=== PATIENT | female | born 1955 | race African-American/Black ===

== ENCOUNTER 2022-09-08 21:18 | Emergency (ER) | payer BC, SELFPAY ==
--- OUTSIDE RECORDS SUMMARY | 2022-09-08 21:22 | XMS REPORT | Continuity of Care Document ---
:1955 Author Organization [facility] t Address [address] [place] [address] Care Team Providers Name Role Phone ROHIT ANN Attending Clinician Unavailable MICHAEL MONTALVO Attending Clinician Unavailable TEENA ESCOBAR Attending Clinician Unavailable Payers Payer Name Policy Type Policy Number Effective Date Expiration Date S [facility] [id number] 2019 PPO 00:00:00 [facility] [id number] 2016 [facility] 00:00:00 Problems This patient has no known problems. Allergies, Adverse Reactions, Alerts Allergy Allergy Status Severity Reaction(s) Onset Inactive Treating Comm ents Source Name Type Date Date Clinician CODEINE DRUG Active Med N/V [facility] 12-25 ity of 00:00: [address] Medications This patient has no known medications. Procedures This patient has no known procedures. Encounters Start End Encounter Admission Attending Care Care Encounter Source Date/Time Date/Time Type Type Clinicians Facility Department ID 2021-04-14 2021-04-14 Outpatient AILIN ANN [id number] 09:30:00 09:30:00 ROHIT parsons 2020-08-29 2020-08-29 Outpatient R SELVIN [facility] [id number] [facility] 14:00:00 14:00:00 MICHAEL itartem [facility] 2020-08-18 2020-08-18 Outpatient R LUZ [facility] [id number] [facility] 10:20:00 10:20:00 TEENA itartem [facility] 2020-08-08 2020-08-08 Out[facility] [id number] [facility] 17:00:00 17:00:00 [facility] 2020-03-22 2020-03-22 Outpatient [facility] [id number] [facility] 09:10:00 09:10:00 [facility] Results This patient has no known results.
[2022-09-08] MEDS ORDERED: PROMETHAZINE INJ 25 MG/ML AMP ONE (21:56)
[2022-09-08] MEDS ORDERED: FAMOTIDINE 20 MG/2 ML VIAL IV ONE (21:56)
[2022-09-08] MEDS ORDERED: NA CHLORIDE 0.9% 1,000 ML ONE (21:57)
[2022-09-08 22:15] LABS: Absolute Lymphocytes (CBC) 0.8 K/uL (0.7-4.9); Hematocrit 35.1 % (36.0-45.0); Lymphocytes % 4.3 % (15.3-44.8); MCV 80.5 fL (80-100); MPV 8.6 fL (7.6-11.3); RBC Red Blood Cell Count 4.36 M/uL (3.86-4.86)
[2022-09-08] MEDS ORDERED: FENTANYL CITR 100 MCG/2 ML ONE (22:29)
[2022-09-08 22:40] LABS: Albumin 3.5 g/dL (3.4-5.0); Bilirubin Total 0.2 mg/dL (0.2-1.0); Potassium 3.4 mmol/L (3.5-5.1); Protein, Total 8.8 g/dL (6.4-8.2); Thyroid Stimulating Hormone 0.371 uIU/mL (0.360-3.740); Troponin High Sensitivity 14.6 pg/mL (<58.9)
--- NOTE | 2022-09-09 00:33 | ER ---
Nurse's Notes [facility] Name: Marianna Chand Age: 67 yrs Sex: Female : 1955 Arrival Date: 09/08/2022 Time: 21:23 Bed 8 Private MD: Diagnosis: Diverticulosis of large intestine without perforation or abscess without bleeding;Biliary colic, abdominal pain Presentation: 09/08 21:31 Chief complaint: Patient states: "I have been throwing up all day, and I have been tw5 having some chest pressure. The pressure started at 5:30 PM, then it went away but then started to come back so that is when I decided to come up here.". Coronavirus screen: Vaccine status: Patient reports receiving the 2nd dose of the covid vaccine. RedT. Ebola Screen: Patient negative for fever greater than or equal to 101.5 degrees Fahrenheit, and additional compatible Ebola Virus Disease symptoms Patient denies exposure to infectious person. Patient denies travel to an Ebola-affected area in the 21 days before illness onset. Initial Sepsis Screen: Does the patient meet any 2 criteria? No. Patient's initial sepsis screen is negative. Does the patient have a suspected source of infection? No. Patient's initial sepsis screen is negative. Risk Assessment: Do you want to hurt yourself or someone else? Patient reports no desire to harm self or others. Onset of symptoms was September 07, 2022 at 17:30. 21:31 Method Of Arrival: Ambulatory tw5 21:31 Acuity: CARA 2 tw5 Triage Assessment: 21:33 General: Appears uncomfortable, Behavior is calm, cooperative, appropriate for age. tw5 Pain: Complains of pain in chest Pain currently is 7 out of 10 on a pain scale. Historical: - Allergies: 21:33 Ibuprofen; tw5 - Home Meds: 21:33 losartan-hydrochlorothiazide 100-25 mg oral tab 1 tab once daily [Active]; tw5 - PMHx: 21:33 Hypertensive disorder; tw5 - PSHx: 21:33 None; tw5 - Immunization history:: Flu vaccine is up to date. - Social history:: Smoking status: Patient denies any tobacco usage or history of. Screenin/04 00:34 Abuse screen: Denies threats or abuse. Denies injuries from another. Nutritional as6 screening: No deficits noted. Tuberculosis screening: No symptoms or risk factors identified. Fall Risk None identified. Assessment: 09/08 22:00 General: Appears in no apparent distress. Behavior is calm, cooperative. Pain: as6 Complains of pain in left upper quadrant and right upper quadrant and chest. Neuro: Level of Consciousness is awake, alert, obeys commands, Oriented to person, place, time, situation. Cardiovascular: Reports chest pain, palpitations. Respiratory: Respiratory effort is even, unlabored. GI: Abdomen is distended. 22:00 GI: Reports nausea. as6 09/09 00:16 Reassessment: Patient and/or family updated on plan of care and expected duration. Pain ll3 level reassessed. Patient is alert, oriented x 3, equal unlabored respirations, skin warm/dry/pink. States pain is 4/10 Patient states feeling better. Patient states symptoms have improved. Vital Signs: 09/08 21:31 BP 198 / 91; Pulse 101; Resp 18; Temp 98.6; Pulse Ox 100% on R/A; Weight 78.02 kg; tw5 Height 5 ft. 1 in. (154.94 cm); Pain 7/10; 22:04 BP 188 / 89; Pulse 98; Resp 29 S; Pulse Ox 100% on R/A; as6 22:44 BP 164 / 62; Pulse 93; Resp 16; Pulse Ox 100% on R/A; ll3 12/04 00:16 BP 147 / 69; Pulse 79; Resp 18; Pulse Ox 98% on R/A; Pain 4/10; ll3 09/08 21:31 Body Mass Index 32.50 (78.02 kg, 154.94 cm) tw5 ED Course: 09/08 21:23 Patient arrived in ED. ja2 21:24 Eun Boyer FNP-C is PHCP. snw 21:24 Juan Arthur DO is Attending Physician. snw 21:33 Triage completed. tw5 21:33 Arm band placed on Patient placed in an exam room. tw5 21:53 Eleno Gotti, SIDNEY is Primary Nurse. as6 22:10 Inserted saline lock: 20 gauge in left antecubital area, using aseptic technique. Blood zm collected. 22:11 CBC with Diff Sent. zm 22:11 CMP Sent. zm 22:11 Lipase Sent. zm 22:12 TSH Sent. zm 22:12 TS Sent. zm 23:47 CT Abd/Pelvis - IV Contrast Only In Process Unspecified. EDMS 09/09 00:34 Placed in gown. Bed in low position. Call light in reach. Side rails up X2. as6 00:34 No provider procedures requiring assistance completed. as6 00:59 IV discontinued, intact, bleeding controlled, No redness/swelling at site. Pressure ll3 dressing applied. Administered Medications: 09/08 22:20 Drug: Pepcid (famotidine) 20 mg Route: IVP; Site: left antecubital; ll3 09/09 00:16 Follow up: Response: No adverse reaction ll3 09/08 22:20 Drug: NS 0.9% 1000 ml Route: IV; Rate: 125 ml/hr; Site: left antecubital; ll3 22:20 Drug: Phenergan (promethazine) 25 mg Route: IM; Site: right gluteus; ll3 09/09 00:16 Follow up: Response: No adverse reaction; Marked relief of symptoms ll3 09/08 22:39 Drug: fentaNYL (PF) 50 mcg Route: IVP; Site: left antecubital; ll3 09/09 00:16 Follow up: Response: No adverse reaction; Marked relief of symptoms ll3 00:53 Drug: Augmentin (Amoxicillin-Clavulanate) 875 mg Route: PO; ll3 Medication: 00:34 VIS not applicable for this client. as6 Outcome: 00:32 Discharge ordered by . snjennifer 00:34 Condition: stable as6 00:59 Discharged to home ambulatory, with significant other. ll3 00:59 Condition: stable 00:59 Discharge instructions given to patient, significant other, Instructed on discharge instructions, follow up and referral plans. medication usage, Demonstrated understanding of instructions, follow-up care, medications, Prescriptions given X 3. 01:00 Patient left the ED. ll3 Signatures: Dispatcher [employer] EDMS Eun Boyer FNP-C ASSISTANT FIELD HOCKEY COACH-Csnw Julieth Ndiaye Tiffany tw5 Eleno Gotti RN RN as6 Phil Macario RN RN ll3 Pamela Lindsey Corrections: (The following items were deleted from the chart) 09/08 21:34 21:33 Allergies: Codeine; tw5 tw5
--- NOTE | 2022-09-09 00:33 | EDPHYS ---
Physician Documentation [facility] Name: Marianna Chand Age: 67 yrs Sex: Female : 1955 Arrival Date: 09/08/2022 Time: 21:23 Bed 8 Private MD: ED Physician Juan Arthur HPI: 09/08 21:52 This 67 yrs old Black Female presents to ER via Ambulatory with complaints of Chest snw Pressure, Vomiting, Abdominal Pain. 21:52 The patient presents with abdominal pain in the epigastric area, in the upper abdomen, snw abdominal distention in the epigastric area, in the upper abdomen. Onset: The symptoms/episode began/occurred suddenly, this morning. The symptoms do not radiate. Associated signs and symptoms: Pertinent positives: nausea and vomiting. The symptoms are described as constant, steady. Severity of pain: At its worst the pain was moderate. The patient has not experienced similar symptoms in the past. The patient has not recently seen a physician. Historical: - Allergies: 21:33 Ibuprofen; tw5 - Home Meds: 21:33 losartan-hydrochlorothiazide 100-25 mg oral tab 1 tab once daily [Active]; tw - PMHx: 21:33 Hypertensive disorder; - PSHx: 21:33 None; tw - Immunization history:: Flu vaccine is up to date. - Social history:: Smoking status: Patient denies any tobacco usage or history of. ROS: 21:51 Constitutional: Negative for fever, chills, and weight loss, Eyes: Negative for injury, snw pain, redness, and discharge, ENT: Negative for injury, pain, and discharge, Neck: Negative for injury, pain, and swelling. 21:51 Back: Negative for injury and pain, : Negative for injury, bleeding, discharge, and swelling, MS/Extremity: Negative for injury and deformity, Skin: Negative for injury, rash, and discoloration, Neuro: Negative for headache, weakness, numbness, tingling, and seizure, Psych: Negative for depression, anxiety, suicide ideation, homicidal ideation, and hallucinations. 21:51 Cardiovascular: Positive for chest pain. 21:51 Respiratory: Negative for cough, shortness of breath, sputum production. 21:51 Abdomen/GI: Positive for abdominal pain, nausea and vomiting, Negative for diarrhea. Exam: 21:50 Constitutional: This is a well developed, well nourished patient who is awake, alert, snw and in no acute distress. Head/Face: Normocephalic, atraumatic. Eyes: Pupils equal round and reactive to light, extra-ocular motions intact. Lids and lashes normal. Conjunctiva and sclera are non-icteric and not injected. Cornea within normal limits. Periorbital areas with no swelling, redness, or edema. ENT: Nares patent. No nasal discharge, no septal abnormalities noted. Tympanic membranes are normal and external auditory canals are clear. Oropharynx with no redness, swelling, or masses, exudates, or evidence of obstruction, uvula midline. Mucous membranes moist. Neck: Trachea midline, no thyromegaly or masses palpated, and no cervical lymphadenopathy. Supple, full range of motion without nuchal rigidity, or vertebral point tenderness. No Meningismus. Chest/axilla: Normal chest wall appearance and motion. Nontender with no deformity. No lesions are appreciated. 21:50 Respiratory: Lungs have equal breath sounds bilaterally, clear to auscultation and percussion. No rales, rhonchi or wheezes noted. No increased work of breathing, no retractions or nasal flaring. 21:50 Back: No spinal tenderness. No costovertebral tenderness. Full range of motion. MS/ Extremity: Pulses equal, no cyanosis. Neurovascular intact. Full, normal range of motion. Neuro: Awake and alert, GCS 15, oriented to person, place, time, and situation. Cranial nerves II-XII grossly intact. Motor strength 5/5 in all extremities. Sensory grossly intact. Cerebellar exam normal. Normal gait. Psych: Awake, alert, with orientation to person, place and time. Behavior, mood, and affect are within normal limits. 21:50 Cardiovascular: Rhythm: regular, with PVC, Heart sounds: murmur, systolic, Edema: is not appreciated. 21:50 Abdomen/GI: Inspection: distension, that is mild, that is moderate, Bowel sounds: normal, Palpation: mild abdominal tenderness, in the right upper quadrant and left upper quadrant. 21:50 Skin: Appearance: Color: pale. Vital Signs: 21:31 BP 198 / 91; Pulse 101; Resp 18; Temp 98.6; Pulse Ox 100% on R/A; Weight 78.02 kg; tw5 Height 5 ft. 1 in. (154.94 cm); Pain 7/10; 22:04 BP 188 / 89; Pulse 98; Resp 29 S; Pulse Ox 100% on R/A; as6 22:44 BP 164 / 62; Pulse 93; Resp 16; Pulse Ox 100% on R/A; ll3 09/09 00:16 BP 147 / 69; Pulse 79; Resp 18; Pulse Ox 98% on R/A; Pain 4/10; ll3 09/08 21:31 Body Mass Index 32.50 (78.02 kg, 154.94 cm) tw5 MDM: 09/08 21:28 Patient medically screened. snw 09/09 00:34 Data reviewed: vital signs, nurses notes. Data interpreted: Pulse oximetry: on room air snw is 98 %. Interpretation: normal. Counseling: I had a detailed discussion with the patient and/or guardian regarding: the historical points, exam findings, and any diagnostic results supporting the discharge/admit diagnosis, the presence of at least one elevated blood pressure reading (>120/80) during this emergency department visit, lab results, radiology results. Response to treatment: the patient's symptoms have mildly improved after treatment. Special discussion: Based on the patient's Hx, exam, and Dx evaluation, there is no indication for emergent surgery or inpatient Tx. It is understood by the patient/guardian that if the Sx's persist or worsen they need to return immediately for re-evaluation. Based on the history and exam findings, there is no indication for further emergent testing or inpatient evaluation. I discussed with the patient/guardian the need to see the zmt operator for further evaluation of the symptoms. CT results discussed with Ms. Chand with findings concerning for colon cancer. Pt must f/u with GI for colonoscopy/biopsy/tx. Pt voices understanding.. 09/08 21:47 Order name: TS; Complete Time: 23:27 snw 09/08 21:47 Order name: TSH; Complete Time: 22:41 snw 09/08 21:47 Order name: CBC with Diff; Complete Time: 22:17 snw 09/08 21:47 Order name: CMP; Complete Time: 22:41 snw 09/08 21:47 Order name: Lipase; Complete Time: 22:41 snw 09/08 21:47 Order name: Troponin High Sensitivity; Complete Time: 22:41 snw 09/08 21:54 Order name: CT Abd/Pelvis - IV Contrast Only snw 09/08 22:41 Order name: Blood Culture Adult (2) snw 09/08 23:29 Order name: ABO/RH no charge; Complete Time: 23:30 EDMS 09/08 21:47 Order name: IV Saline Lock; Complete Time: 22:11 snw 09/08 21:47 Order name: Labs collected and sent; Complete Time: 22:11 snw EC/03 21:54 Rate is 100 beats/min. Rhythm is regular. QRS Vida is Normal. CT interval is normal. snw QRS interval is normal. Clinical impression: NSR w/ Non-specific ST/T Changes. Administered Medications: 22:20 Drug: Pepcid (famotidine) 20 mg Route: IVP; Site: left antecubital; ll3 09/09 00:16 Follow up: Response: No adverse reaction 3 09/08 22:20 Drug: NS 0.9% 1000 ml Route: IV; Rate: 125 ml/hr; Site: left antecubital; 3 22:20 Drug: Phenergan (promethazine) 25 mg Route: IM; Site: right gluteus; ll3 09/09 00:16 Follow up: Response: No adverse reaction; Marked relief of symptoms ll3 09/08 22:39 Drug: fentaNYL (PF) 50 mcg Route: IVP; Site: left antecubital; ll3 09/09 00:16 Follow up: Response: No adverse reaction; Marked relief of symptoms ll3 00:53 Drug: Augmentin (Amoxicillin-Clavulanate) 875 mg Route: PO; ll3 Disposition: 09/08 22:39 Co-signature as Attending Physician, Juan BHAT was immediately available on-site ms3 in the Emergency Department for consultation in the care of the patient. Disposition Summary: 09/09/22 00:32 Discharge Ordered Location: Home snw Condition: Stable snw Diagnosis - Diverticulosis of large intestine without perforation or abscess without bleeding snw - Biliary colic, abdominal pain snw Followup: snw - With: Emergency Department - When: As needed - Reason: Worsening of condition Followup: snw - With: Private Physician - When: 1 - 2 days - Reason: Recheck today's complaints, Continuance of care, Re-evaluation by your physician Discharge Instructions: - Discharge Summary Sheet snw - Biliary Colic, Adult snw - High-Fiber Diet snw - Diverticulosis snw - Colon Mass, Adult snw Forms: - Medication Reconciliation Form snw - Thank You Letter snw - Antibiotic Education snw - Prescription Opioid Use snw Prescriptions: - Augmentin 875-125 mg Oral Tablet - take 1 tablet by ORAL route every 12 hours for 10 days; 20 tablet; Refills: 0, snw Product Selection Permitted - Tramadol 50 mg Oral Tablet - take 1 tablet by ORAL route every 8 hours as needed; 12 tablet; Refills: 0, snw Product Selection Permitted - promethazine 25 mg Oral Tablet - take 1 tablet by ORAL route every 6 hours As needed; 20 tablet; Refills: 0, snw Product Selection Permitted Signatures: Dispatcher [employer] EDMS Eun Boyer, MICHEL-C DOUGH MIXING MACHINE OPERATOR-Denilsonw Juan Arthur DO DO ms3 Rola Melara tw5 Phil Macario RN RN ll3 Corrections: (The following items were deleted from the chart) 21:34 21:33 Allergies: Codeine; tw5 tw5
[2022-09-09] MEDS ORDERED: AMOX/K CLAV 875 MG TAB ONE (00:36)
[2022-09-09 01:06] VITALS: TEMP 98.6
[2022-09-09 01:10] VITALS: BP 147/69; O2SAT 98
--- NOTE | 2022-09-10 11:41 | RAD REPORT ---
EXAM DESCRIPTION: CT - Abdomen Pelvis W Contrast - 09/09/2022 6:57 am CLINICAL HISTORY: The patient is 67 years old and is Female; Abdominal pain, acute, nonlocalized TECHNIQUE: Axial computed tomography images of the abdomen and pelvis with intravenous contrast. S agittal and coronal reformatted images were created and reviewed. This CT exam was performed using one or more of the following dose reduction techniques: automated exposure control, adjustment of t he mA and/or kV according to patient size, and/or use of iterative reconstruction technique. DLP: 1891 mGy*cm COMPARISON: None. FINDINGS: LUNG BASES: Bibasilar atelectasis or scarring. No focal consolidation. MEDIASTINUM: Small hiatal hernia. ABDOMEN: LIVER: Hepatic steatosis. GALLBLADDER AND BILE DUCTS: Cholelithiasis and fluid distention of the gallbladder. No pericholecys tic fluid. No ductal dilation. PANCREAS: Unremarkable. No mass. No ductal dilation. SPLEEN: Unremarkable. No splenomegaly. ADRENALS: Unremarkable. No mass. KIDNEYS AND URETERS: Multiple bilateral renal cysts measuring up to 3.8 cm on the left. No hydronephrosis. STOMACH AND BOWEL: Circumferential wall thickening of the distal descending colon with regional lum inal narrowing and prominence of the mesentery. Upstream thecal dilatation of the descending colon wi th scattered diverticula and wall thickening. PELVIS: APPENDIX: The appendix is seen and is within normal limits. BLADDER: Unremarkable. No mass. REPRODUCTIVE: Unremarkable as visualized. ABDOMEN and PELVIS: INTRAPERITONEAL SPACE: Unremarkable. No free air. No significant fluid collection. BONES/JOINTS: No acute fracture. No dislocation. SOFT TISSUES: Unremarkable. VASCULATURE: Unremarkable. No abdominal aortic aneurysm. LYMPH NODES: Unremarkable. No enlarged lymph nodes. IMPRESSION: 1. Circumferential wall thickening of the distal descending colon with regional lumina l narrowing and prominence of the mesentery. Upstream fecal dilatation of the descending colon with s cattered diverticula and wall thickening. Finding could be secondary to focal diverticulitis. Howev er, mucosal neoplastic (Apple core) lesion cannot be excluded. No perforation or abscess formation. C olonoscopy is recommended when clinically feasible. 2. Cholelithiasis and fluid distention of the gallbladder. No pericholecystic fluid. 3. Small hiatal hernia. 4. Hepatic steatosis. Electronically signed by: William Bhagat DO 09/09/2022 12:02 AM PRACTICE SPECIALIST Due to temporary technical issues with the PACS/Fluency reporting system, reports are being signed by the in house radiologists without review as a courtesy to insure prompt reporting. The interpreting radiologist is fully responsible for the content of the report.
--- NOTE | 2022-09-10 13:50 | EKG ---
Test Date: 2022-09-08 Test Time: 21:47:32 Licensed Aircraft Maintenance Engineer: MEASUREMENT RESULTS: Intervals: Rate: 100 AL: 130 QRSD: 86 QT: 374 QTc: 482 [place]: P: 56 AL: 130 QRS: 24 T: 19 INTERPRETIVE STATEMENTS: Sinus rhythm with premature atrial complexes Right atrial enlargement Borderline ECG Compared to ECG 07/27/1996 14:52:00 Atrial premature complex(es) now present Atrial abnormality now present Electronically Signed On 09-10-22 13:47:19 GRANULAR OPERATOR by Edmund Helms
== END 2022-09-09 01:00 | disposition home or self-care (01) ==
LOC: ER 21:18
DX: K57.30 Diverticulosis of large intestine without perforation or abscess without bleeding (principal); K80.50 Calculus of bile duct without cholangitis or cholecystitis without obstruction; I10 Essential (primary) hypertension; Z88.6 Allergy status to analgesic agent
CPT/HCPCS: 36415; 74177; 80053; 83690; 84443; 84484; 85025; 86850; 86900; 86901; 87040; 93005; 96372; 96374; 96375; 99284; J2550; J3010; J7030; Q9967

== ENCOUNTER 2022-09-22 15:44 | Inpatient (IN) | payer OTHER, SELFPAY ==
--- OUTSIDE RECORDS SUMMARY | 2022-09-22 15:46 | XMS REPORT | Continuity of Care Document ---
:1955 Author Organization [facility] t Address [address] [place] [address] Care Team Providers Name Role Phone ROHIT ANN Attending Clinician Unavailable MICHAEL MONTALVO Attending Clinician Unavailable TEENA ESCOBAR Attending Clinician Unavailable Payers Payer Name Policy Type Policy Number Effective Date Expiration Date S [facility] [id number] 2019 PPO 00:00:00 [facility] [id number] 2016 [facility] 00:00:00 Problems This patient has no known problems. Allergies, Adverse Reactions, Alerts Allergy Allergy Status Severity Reaction(s) Onset Inactive Treating Comm ents Source Name Type Date Date Clinician CODEINE DRUG Active Med N/V [facility] 12-25 ity of 00:00: [address] Medications This patient has no known medications. Procedures This patient has no known procedures. Encounters Start End Encounter Admission Attending Care Care Encounter Source Date/Time Date/Time Type Type Clinicians Facility Department ID 2021-04-14 2021-04-14 Outpatient AILIN ANN [id number] 09:30:00 09:30:00 ROHIT parsons 2020-08-29 2020-08-29 Outpatient R SELVIN [facility] [id number] [facility] 14:00:00 14:00:00 MICHAEL itartem [facility] 2020-08-18 2020-08-18 Outpatient R LUZ [facility] [id number] [facility] 10:20:00 10:20:00 TEENA itartem [facility] 2020-08-08 2020-08-08 Outpatient R [facility] [id number] [facility] 17:00:00 17:00:00 [facility] 2020-03-22 2020-03-22 Outpatient R [facility] [id number] [facility] 09:10:00 09:10:00 [facility] Results This patient has no known results.
[2022-09-22] MEDS ORDERED: ONDANSETRON 4 MG/2 ML VIAL ONE ×2 (16:26→19:28)
[2022-09-22] MEDS ORDERED: FAMOTIDINE 20 MG/2 ML VIAL IV ONE (16:27)
[2022-09-22] MEDS ORDERED: NA CHLORIDE 0.9% 1,000 ML ONE (16:27)
[2022-09-22 17:33] LABS: Absolute Lymphocytes (CBC) 0.8 K/uL (0.7-4.9); Hematocrit 37.1 % (36.0-45.0); Lymphocytes % 4.2 % (15.3-44.8); MCV 80.4 fL (80-100); MPV 8.5 fL (7.6-11.3); RBC Red Blood Cell Count 4.61 M/uL (3.86-4.86)
[2022-09-22] MEDS ORDERED: PROMETHAZINE INJ 25 MG/ML AMP ONE (18:04)
[2022-09-22] MEDS ORDERED: MORPHINE 2 MG/ML SYR ONE (18:05)
--- NOTE | 2022-09-22 18:18 | RAD REPORT ---
EXAM DESCRIPTION: CT - Abdomen Pelvis W Contrast - 09/22/2022 5:59 pm CLINICAL HISTORY: Abdominal pain COMPARISON: September 08, 2022 TECHNIQUE: Computed axial tomography of the abdomen pelvis was obtained. 100 cc Isovue-300 was admin istered intravenously. Oral contrast was not requested which limits evaluation of bowel and appendix All CT scans are performed using dose optimization technique as appropriate and may include automated exposure control or mA/KV adjustment according to patient size. FINDINGS: Fatty liver Spleen, pancreas, adrenals and right kidney unremarkable. 4.1 centimeter left renal cyst. Cholelithiasis. No gallbladder wall thickening. Small moderate hiatal hernia Calcified uterine fibroids. Diverticula stem from colon. 4 centimeter apparent soft tissue structure proximal sigmoid colon. Mild stranding within the adjacen t fat. IMPRESSION: 4 centimeter apparent soft tissue structure proximal sigmoid colon may represent neoplas m. Another consideration is that this is secondary to mild diverticulitis. Cholelithiasis
[2022-09-22 19:01] LABS: Albumin 3.3 g/dL (3.4-5.0); Bilirubin Total 0.3 mg/dL (0.2-1.0); Potassium 3.7 mmol/L (3.5-5.1)
[2022-09-22] MEDS ORDERED: hydroCHLOROthiazide 25 MG TAB ONE (19:22)
[2022-09-22] MEDS ORDERED: LOSARTAN POTASSIUM 50 MG TABLET ONE (19:22)
[2022-09-22] MEDS ORDERED: metroNIDAZOLE 500 MG TABLET ONE (19:22)
[2022-09-22] MEDS ORDERED: CIPROFLOXACIN HCL 500 MG TAB ONE (19:22)
--- NOTE | 2022-09-22 20:08 | ER ---
Nurse's Notes [facility] Name: Marianna Chand Age: 67 yrs Sex: Female : 1955 Arrival Date: 09/22/2022 Time: 15:47 Bed 7 Private MD: Diagnosis: Diverticulitis of intestine, part unspecified, without perforation or abscess without bleeding;Nausea with vomiting, unspecified;Elevated white blood cell count Presentation: 09/22 16:01 Chief complaint: Patient states: N/V x 1 day, took phenergan this morning w/ no relief, ph also reports upper abdominal pain. Coronavirus screen: Vaccine status: Patient reports receiving the 2nd dose of the covid vaccine. Ebola Screen: No symptoms or risks identified at this time. Initial Sepsis Screen: Does the patient meet any 2 criteria? No. Patient's initial sepsis screen is negative. Does the patient have a suspected source of infection? No. Patient's initial sepsis screen is negative. Risk Assessment: Do you want to hurt yourself or someone else? Patient reports no desire to harm self or others. Onset of symptoms was September 22, 2022. 16:01 Method Of Arrival: Ambulatory ph 16:01 Acuity: CARA 3 ph Historical: - Allergies: 16:05 Ibuprofen; ph - Home Meds: 16:05 losartan-hydrochlorothiazide 100-25 mg Oral tab 1 tab once daily [Active]; ph - PMHx: 16:05 Hypertensive disorder; ph - Immunization history:: Adult Immunizations unknown. - Social history:: Smoking status: Patient denies any tobacco usage or history of. Screenin:47 Abuse screen: Denies threats or abuse. Denies injuries from another. Nutritional db screening: No deficits noted. Tuberculosis screening: No symptoms or risk factors identified. Fall Risk No fall in past 12 months (0 pts). No secondary diagnosis (0 pts). IV access (20 points). Ambulatory Aid- Gait- Normal/Bed Rest/Wheelchair (0 pts) Mental Status- Oriented to own ability (0 pts). Total Hernandez Fall Scale indicates No Risk (0-24 pts). 19:09 [facility] ED Fall Risk Assessment (Adult) History of falling in the last 3 months, db including since admission No falls in past 3 months (0 pts) Confusion or Disorientation No (0 pts) Intoxicated or Sedated No (0 pts) Impaired Gait No (0 pts) Mobility Assist Device Used No (0 pt) Altered Elimination No (0 pt) Score/Fall Risk Level 0 - 2 = Low Risk. Assessment: 16:15 Reassessment: Patient appears in no apparent distress at this time. Patient is alert, db oriented x 3, equal unlabored respirations, skin warm/dry/pink. patient states has nausea and abdominal discomfort started today. states vomited BP medications. General: Appears in no apparent distress. comfortable, Behavior is calm, cooperative, appropriate for age. Pain: Complains of pain in abdomen. Neuro: No deficits noted. Level of Consciousness is awake, alert, obeys commands, Oriented to person, place, time, situation, Appropriate for age Speech is normal. Cardiovascular: No deficits noted. Respiratory: No deficits noted. GI: Abdomen is flat, non-distended, Pt is actively vomiting dry heaving Abd is soft. : No deficits noted. No signs and/or symptoms were reported regarding the genitourinary system. 18:15 Reassessment: Patient appears in no apparent distress at this time. No changes from kc6 previously documented assessment. Patient and/or family updated on plan of care and expected duration. Pain level reassessed. Patient is alert, oriented x 3, equal unlabored respirations, skin warm/dry/pink. 19:51 General: Appears in no apparent distress. comfortable, Behavior is calm, cooperative, aa9 appropriate for age. Pain: Denies pain. Neuro: Level of Consciousness is awake, alert, obeys commands, Oriented to person, place, time, situation. Respiratory: Airway is patent Respiratory effort is even, unlabored. Vital Signs: 16:01 Pulse 89; Resp 18; Temp 98.2; Pulse Ox 100% on R/A; Weight 80.29 kg; Height 5 ft. 1 in. ph (154.94 cm); 16:04 BP 199 / 74; ph 16:32 BP 179 / 66; Pulse 90; Resp 16; Pulse Ox 99% on R/A; db 18:15 BP 186 / 83; Pulse 95; Resp 16 S; Pulse Ox 100% ; Pain 9/10; kc6 19:51 BP 189 / 90; Pulse 94; Resp 19 S; Pulse Ox 99% ; aa9 23:17 BP 164 / 78; Pulse 98; Resp 16; Pulse Ox 98% on R/A; ll3 16:01 Body Mass Index 33.44 (80.29 kg, 154.94 cm) ph 16:04 threw up BP meds this morning ph ED Course: 15:47 Patient arrived in ED. rg4 15:49 Georgette Leigh F[facility]-C [facility] kb 15:49 Spenser Robles MD is Attending Physician. kb 16:04 Triage completed. ph 16:06 Arm band placed on Patient placed in an exam room. ph 16:11 Denise Shafer, RN is Primary Nurse. db 16:30 Inserted saline lock: 20 gauge in right antecubital area, using aseptic technique. db Blood collected. 18:01 CT Abd/Pelvis - IV Contrast Only In Process Unspecified. EDMS 19:09 Patient has correct armband on for positive identification. Bed in low position. Call db light in reach. Side rails up X2. Pulse ox on. NIBP on. 19:09 Report given to unclaimed property manager RN. db 21:20 Fer Farooq is Hospitalizing Provider. kb 21:49 Primary Nurse role handed off by Denise Shafer, RN wm 23:50 No provider procedures requiring assistance completed. IV discontinued, intact, aa9 bleeding controlled, No redness/swelling at site. Pressure dressing applied. Administered Medications: 16:30 Drug: NS 0.9% 1000 ml Route: IV; Rate: 1 bolus; Site: right antecubital; db 19:08 Follow up: Response: No adverse reaction; IV Status: Completed infusion; IV Intake: db 500ml 16:30 Drug: Pepcid (famotidine) 20 mg Route: IVP; Site: right antecubital; db 18:37 Follow up: Response: No adverse reaction db 16:30 Drug: Zofran (Ondansetron) 4 mg Route: IVP; Site: right antecubital; db 18:37 Follow up: Response: No adverse reaction db 18:14 Drug: Phenergan (promethazine) 25 mg Route: IM; Site: right deltoid; kc6 19:08 Follow up: Response: No adverse reaction db 19:08 Follow up: Response: Nausea is decreased db 18:14 Drug: morphine 2 mg Route: IVP; Infused Over: 4 mins; Site: right antecubital; kc6 19:08 Follow up: Response: No adverse reaction db 19:32 Drug: Losartan 100 mg Route: PO; aa9 23:52 Follow up: Response: No adverse reaction aa9 19:38 Drug: Hydrochlorothiazide 25 mg Route: PO; aa9 23:52 Follow up: Response: No adverse reaction aa9 19:38 Drug: Flagyl (metroNIDAZOLE) 500 mg Route: PO; aa9 23:52 Follow up: Response: No adverse reaction aa9 19:38 Drug: Cipro (ciprofloxacin) 500 mg Route: PO; aa9 23:52 Follow up: Response: No adverse reaction aa9 19:38 Drug: Zofran (Ondansetron) 4 mg Route: IVP; Site: right antecubital; aa9 23:52 Follow up: Response: No adverse reaction aa9 20:53 Not Given (Patient Refused): fentaNYL (PF) 25 mcg IVP once ll3 21:30 Drug: Ambien (zolpidem) 10 mg Route: PO; ll3 23:51 Follow up: Response: No adverse reaction; Marked relief of symptoms aa9 22:18 Drug: Reglan (metoCLOPramide) 10 mg Route: IVP; Site: right antecubital; ll3 23:51 Follow up: Response: No adverse reaction aa9 Medication: 16:32 VIS not applicable for this client. db Intake: 19:08 IV: 500ml; Total: 500ml. db Outcome: 20:08 Discharge ordered by MD. kb 21:20 Decision to Hospitalize by Provider. kb 23:50 Patient left the ED. hb 23:50 Admitted to Med/surg accompanied by tech, via stretcher, with chart, Report called to ekndrick Stockton RN 23:50 Condition: stable 23:50 Instructed on the need for admit, Demonstrated understanding of instructions. Signatures: Dispatcher [employer] EDGeorgette Ramirez, FÉLIX GARRETTP-Damaris Umanzor, RN RN Gina Jovel RN RN Kelsy Roger4 Simona Fuchs Lynsea, RN RN ll3 Karyna Jim RN RN Jo Ann Woods RN RN kc6 Denise Shafer RN RN db
--- NOTE | 2022-09-22 20:08 | EDPHYS ---
Physician Documentation [facility] Name: Marianna Chand Age: 67 yrs Sex: Female : 1955 Arrival Date: 09/22/2022 Time: 15:47 Bed 7 Private MD: ED Physician Spenser Robles HPI: 09/22 20:06 This 67 yrs old Black Female presents to ER via Ambulatory with complaints of Vomiting. kb 20:06 The patient presents to the emergency department with nausea, vomiting. Onset: The kb symptoms/episode began/occurred today. Possible causes: unknown. The symptoms are aggravated by nothing. The symptoms are alleviated by nothing. Associated signs and symptoms: Pertinent positives: abdominal pain, nausea, vomiting. Severity of symptoms: At their worst the symptoms were moderate in the emergency department the symptoms are unchanged. The patient has experienced a previous episode. The patient has been recently seen at the [facility] Department, a couple of weeks ago. Pt reports nausea and vomiting that started at noon today. States she has associated abd and chest pain similar to when she was here on 09/08. . Historical: - Allergies: 16:05 Ibuprofen; ph - Home Meds: 16:05 losartan-hydrochlorothiazide 100-25 mg Oral tab 1 tab once daily [Active]; ph - PMHx: 16:05 Hypertensive disorder; ph - Immunization history:: Adult Immunizations unknown. - Social history:: Smoking status: Patient denies any tobacco usage or history of. ROS: 20:03 Constitutional: Negative for fever, chills, and weight loss. kb 20:03 Abdomen/GI: Positive for abdominal pain, nausea and vomiting, Negative for diarrhea, constipation. 20:03 All other systems are negative. Exam: 19:51 Constitutional: This is a well developed, well nourished patient who is awake, alert, kb and in no acute distress. Head/Face: Normocephalic, atraumatic. ENT: Moist Mucous membranes Cardiovascular: Regular rate and rhythm with a normal S1 and S2. No gallops, murmurs, or rubs. No pulse deficits. Respiratory: Respirations even and unlabored. No increased work of breathing. Talking in full sentences Skin: Warm, dry with normal turgor. Normal color. MS/ Extremity: Pulses equal, no cyanosis. Neurovascular intact. Full, normal range of motion. Neuro: Awake and alert, GCS 15, oriented to person, place, time, and situation. Moves all extremities. Normal gait. Psych: Awake, alert, with orientation to person, place and time. Behavior, mood, and affect are within normal limits. 19:51 ECG was reviewed by the Attending Physician. 19:51 Abdomen/GI: Inspection: abdomen appears normal, Bowel sounds: normal, in all quadrants, Palpation: soft, in all quadrants, mild abdominal tenderness, in the left lower quadrant. Vital Signs: 16:01 Pulse 89; Resp 18; Temp 98.2; Pulse Ox 100% on R/A; Weight 80.29 kg; Height 5 ft. 1 in. ph (154.94 cm); 16:04 BP 199 / 74; ph 16:32 BP 179 / 66; Pulse 90; Resp 16; Pulse Ox 99% on R/A; db 18:15 BP 186 / 83; Pulse 95; Resp 16 S; Pulse Ox 100% ; Pain 9/10; kc6 19:51 BP 189 / 90; Pulse 94; Resp 19 S; Pulse Ox 99% ; aa9 23:17 BP 164 / 78; Pulse 98; Resp 16; Pulse Ox 98% on R/A; ll3 16:01 Body Mass Index 33.44 (80.29 kg, 154.94 cm) ph 16:04 threw up BP meds this morning ph MDM: 15:49 Patient medically screened. kb 20:03 Data reviewed: vital signs, nurses notes. Data interpreted: Pulse oximetry: on room air kb is 99 %. Interpretation: normal. Counseling: I had a detailed discussion with the patient and/or guardian regarding: the historical points, exam findings, and any diagnostic results supporting the discharge/admit diagnosis, lab results, radiology results, the need for outpatient follow up, a application architect, to return to the emergency department if symptoms worsen or persist or if there are any questions or concerns that arise at home. ED course: Discussed CT findings including possible colon cancer. Pt states she was told about that last visit and has an appt with Dr Pollard on Saturday. . 21:18 ED course: Pt began vomiting again. Will admit for intractable vomiting. . kb 09/22 15:56 Order name: CBC with Diff; Complete Time: 17:35 kb 09/22 15:56 Order name: CMP; Complete Time: 19:03 kb 09/22 15:56 Order name: Lipase; Complete Time: 19:03 kb 09/22 19:13 Order name: Troponin High Sensitivity; Complete Time: 19:35 kb 09/22 21:19 Order name: SARS RAPID; Complete Time: 22:11 kb 09/22 23:27 Order name: CREATININE WHOLE BLOOD; Complete Time: 23:35 EDMS 09/22 15:56 Order name: CT Abd/Pelvis - IV Contrast Only; Complete Time: 18:19 kb 09/22 15:56 Order name: IV Saline Lock; Complete Time: 16:45 kb 09/22 15:56 Order name: Labs collected and sent; Complete Time: 16:45 kb 09/22 16:58 Order name: Labs - recollect needed: hemolyzed; Complete Time: 18:36 eb 09/22 17:45 Order name: Labs - recollect needed: recollect the recollect green top/ inside lab eb paged; Complete Time: 18:36 09/22 19:11 Order name: EKG; Complete Time: 19:12 kb 09/22 19:11 Order name: EKG - Nurse/Tech; Complete Time: 19:45 kb EC:51 Rate is 90 beats/min. Rhythm is regular. QRS [place] is Normal. SC interval is normal at kb 134 msec. QRS interval is normal at 82 msec. QT interval is normal at 447 msec. Administered Medications: 16:30 Drug: NS 0.9% 1000 ml Route: IV; Rate: 1 bolus; Site: right antecubital; db 19:08 Follow up: Response: No adverse reaction; IV Status: Completed infusion; IV Intake: db 500ml 16:30 Drug: Pepcid (famotidine) 20 mg Route: IVP; Site: right antecubital; db 18:37 Follow up: Response: No adverse reaction db 16:30 Drug: Zofran (Ondansetron) 4 mg Route: IVP; Site: right antecubital; db 18:37 Follow up: Response: No adverse reaction db 18:14 Drug: Phenergan (promethazine) 25 mg Route: IM; Site: right deltoid; kc6 19:08 Follow up: Response: No adverse reaction db 19:08 Follow up: Response: Nausea is decreased db 18:14 Drug: morphine 2 mg Route: IVP; Infused Over: 4 mins; Site: right antecubital; kc6 19:08 Follow up: Response: No adverse reaction db 19:32 Drug: Losartan 100 mg Route: PO; aa9 23:52 Follow up: Response: No adverse reaction aa9 19:38 Drug: Hydrochlorothiazide 25 mg Route: PO; aa9 23:52 Follow up: Response: No adverse reaction aa9 19:38 Drug: Flagyl (metroNIDAZOLE) 500 mg Route: PO; aa9 23:52 Follow up: Response: No adverse reaction aa9 19:38 Drug: Cipro (ciprofloxacin) 500 mg Route: PO; aa9 23:52 Follow up: Response: No adverse reaction aa9 19:38 Drug: Zofran (Ondansetron) 4 mg Route: IVP; Site: right antecubital; aa9 23:52 Follow up: Response: No adverse reaction aa9 20:53 Not Given (Patient Refused): fentaNYL (PF) 25 mcg IVP once ll3 21:30 Drug: Ambien (zolpidem) 10 mg Route: PO; ll3 23:51 Follow up: Response: No adverse reaction; Marked relief of symptoms aa9 22:18 Drug: Reglan (metoCLOPramide) 10 mg Route: IVP; Site: right antecubital; ll3 23:51 Follow up: Response: No adverse reaction aa9 Disposition: 09/23 19:41 Co-signature as Attending Physician, Spenser Roblse MD. rn Disposition Summary: 09/22/22 21:20 Hospitalization Ordered Hospitalization Status: Observation kb Provider: Fer Farooq Location: Telemetry/MedSur (observation)(09/22/22 21:20) kb Condition: Stable(09/22/22 21:20) kb Problem: new kb Symptoms: are unchanged kb Bed/Room Type: Standard Room Assignment: 228(09/22/22 22:44) Diagnosis - Diverticulitis of intestine, part unspecified, without perforation or abscess kb without bleeding(09/22/22 21:20) - Nausea with vomiting, unspecified kb - Elevated white blood cell count(09/22/22 21:20) kb Forms: - Medication Reconciliation Form kb - SBAR form kb Signatures: Dispatcher [employer] Georgette Banerjee, ORAL AND MAXILLOFACIAL PATHOLOGIST-C ORAL AND MAXILLOFACIAL PATHOLOGIST-Ckb Cecile Wilkins, RN RN mw Spenser Robles MD MD rn Hall, Patricia RN RN Maylin Chao Lynsea, RN RN ll3 Karyna Jim, RN RN aa9 Jo Ann Keith RN RN kc6 Denise Shafer RN RN Paris Galvan, PA-C PA-C sb4 Corrections: (The following items were deleted from the chart) 09/22 21: 20:08 Home kb kb : 20:08 Stable kb kb : 20:08 Diverticulitis of intestine, part unspecified, without perforation or abscess kb without bleeding kb : 20:08 Elevated white blood cell count kb kb 22:44 21:20 kb mw
[2022-09-22] MEDS ORDERED: FENTANYL CITR 100 MCG/2 ML ONE (20:17)
--- NOTE | 2022-09-22 20:51 | P.HP ---
Certification for Inpatient Patient admitted to: Observation With expected LOS: <2 Midnights Patient will require the following post-hospital care: None Practitioner: I am a practitioner with admitting privileges, knowledge of patient current condition, hospital course, and medical plan of care. Services: Services provided to patient in accordance with Admission requirements found in Title 42 Section 412.3 of the Code of Federal Regulations <Paris Weldon - Last Filed: 09/22/22 23:03> Patient History Date of Service: 09/22/22 Reason for admission: Intractable Vomiting History of Present Illness: Patient is a 67 year old female with past medical history of hypertension who presented to the ED with complaints of nausea, vomiting, and abdominal pain. Patient was seen here 1.5 weeks ago and found to have a possible colonic mass and instructed to follow up with GI. She has an appointment with Dr. Pollard on Saturday. Labs are significant for 18.2, hgb 11.9, sodium 132. LFTs WNL. CT abdomen pelvis today showed "4 centimeter apparent soft tissue structure proximal sigmoid colon may represent neoplasm. Another consideration is that this is secondary to mild diverticulitis. Cholelithiasis." She continued to vomit in the ED despite several rounds of antiemetics. Patient is admitted for further management/observation of intractable vomiting. Home medications list reviewed: Yes - Past Medical/Surgical History Diabetic: No -: Hypertension -: Bilateral knee Psychosocial/ Personal History: Patient lives at home with her family. - Family History Mother -: Cancer Notes: Colon Cancer - Social History Smoking Status: Never smoker Alcohol use: No CD- Drugs: No Caffeine use: Yes Place of Residence: Home <Paris Weldon - Last Filed: 09/22/22 23:03> Date of Service: 09/30/22 <John Richmond - Last Filed: 09/30/22 00:29> Allergies No Known Allergies Allergy (Verified 09/22/22 23:56) Review of Systems Gastrointestinal: Nausea, Vomiting, Abdominal Pain <ShirazParis - Last Filed: 09/22/22 23:03> Physical Examination - Vital Signs Temperature: 98.2 F Blood Pressure: 189/90 Pulse: 94 Respirations: 19 Pulse Ox (%): 99 (room air) - Physical Exam General: Alert, In no apparent distress HEENT: Atraumatic, PERRLA, EOMI, Sclerae nonicteric Neck: Supple, 2+ carotid pulse no bruit, No LAD, Without JVD or thyroid abnormality Respiratory: Clear to auscultation bilaterally, Normal air movement Cardiovascular: Regular rate/rhythm, Normal S1 S2 Gastrointestinal: Normal bowel sounds, No tenderness Musculoskeletal: No tenderness Integumentary: No rashes Neurological: Normal speech, Normal strength at 5/5 x4 extr, Normal tone, Normal affect - Studies Laboratory Data (last 24 hrs) 09/22/22 17:35: Sodium 132 L, Potassium 3.7, BUN 12, Creatinine 0.99, Glucose 123 H, Total Bilirubin 0.3, AST 18, ALT 20, Alkaline Phosphatase 93, Lipase 60 L 09/22/22 17:20: WBC 18.20 H, Hgb 11.9 L, Hct 37.1, Plt Count 379 <Paris Weldon - Last Filed: 09/22/22 23:03> Assessment and Plan - Problems (Diagnosis) (1) Intractable vomiting with nausea Status: Acute (2) Hypertension Status: Chronic Qualifiers: Hypertension type: primary hypertension Qualified Code(s): I10 - Essential (primary) hypertension (3) Diverticulitis Status: Acute (4) Colonic mass Status: Acute - Plan Patient is admitted for observation/further management of intractable vomiting. Continue IV cipro/flagyl for leukocytosis, diverticulitis vs gastroenteritis. Will obtain abdominal ultrasound to further assess gallbladder. General surgery consult if needed. LFTs WNL. CT showing 4 centimeter apparent soft tissue structure proximal sigmoid colon may represent neoplasm. Has GI follow up Saturday. Clear liquid diet, advance as tolerated. Supportive measures with antiemetics, pain medications, and IV fluids. Monitor and replete electrolytes per protocol. Reconcile and continue home medications. Lovenox for VTE prophylaxis. Full code - Advance Directives Does patient have a Living Will: No Does patient have a Durable POA for Healthcare: No <Paris Weldon - Last Filed: 09/22/22 23:03>
[2022-09-22] MEDS ORDERED: ZOLPIDEM TARTRATE 5 MG TABLET ONE (21:11)
[2022-09-22 22:11] LABS: SARS-CoV-2 Antigen Rapid Res Negative (Negative)
[2022-09-22] MEDS ORDERED: METOCLOPRAMIDE 10 MG/2mL INJ ONE (22:17)
[2022-09-22] MEDS ORDERED: NA CHLORIDE 0.9% 100 ML IV ONE (22:17)
[2022-09-22] MEDS ORDERED: ONDANSETRON 4 MG/2 ML VIAL IV PRN (23:25)
[2022-09-22] MEDS ORDERED: MORPHINE 2 MG/ML SYR IV PRN (23:25)
[2022-09-23] MEDS: HYDRALAZINE HCL 20 MG/ML VIAL IV PRN (00:23)
[2022-09-23] MEDS: PANTOPRAZOLE 40 MG INJ IVP SCH ×3 (00:23→20:22)
[2022-09-23] MEDS: NA CHLORIDE 0.9% 1,000 ML IV SCH ×2 (00:23→13:02)
[2022-09-23] MEDS: METRONIDAZOLE 500mg IVPB 500 MG/100 ML BAG IV SCH ×3 (00:24→17:55)
[2022-09-23 01:48] VITALS: BMI 31.4
[2022-09-23 04:22] LABS: Absolute Lymphocytes (CBC) 0.6 K/uL (0.7-4.9); Hematocrit 34.2 % (36.0-45.0); Lymphocytes % 3.8 % (15.3-44.8); MCV 80.1 fL (80-100); MPV 9.1 fL (7.6-11.3); RBC Red Blood Cell Count 4.28 M/uL (3.86-4.86)
[2022-09-23 04:26] LABS: Magnesium 1.6 mg/dL (1.6-2.4); Phosphorus 2.3 mg/dL (2.5-4.9); Potassium 3.2 mmol/L (3.5-5.1)
[2022-09-23] MEDS ORDERED: MAGNESIUM SULFATE 1 gm IVPB 1 GM/100 ML BAG IV ONE (06:00)
--- NOTE | 2022-09-23 07:41 | RAD REPORT ---
EXAM DESCRIPTION: US - Abdomen Exam Limited - 09/23/2022 7:02 am CLINICAL HISTORY: cholelithiasis, intractable vomiting COMPARISON: Abdomen Pelvis W Contrast dated 09/22/2022 FINDINGS: Gallbladder size is normal. A 12 millimeter echogenic focus is present in the gallbladder fundus. There is limited or absent posterior acoustic shadowing. This is most likely a gallstone. Gal lbladder wall mass is not suspected. On the CT study the gallstone is visible in the adjacent wall is not thickened or edematous. No other stones or sludge identifiable. Common bile duct is 6 mm, normal range, with no common duct stone identified. There was limited assessment performed of the left kidney which shows normal size. A 4.4 centimeter t hin-walled simple cyst is identified. There is some heterogeneity of renal cortical echogenicity. Sriram lonephritis is possible though sonography is limited in this evaluation. Correlation is needed with a ny UA abnormalities or supporting clinical/ laboratory findings. IMPRESSION: Single 12 mm gallstone without other gallbladder or biliary tree findings. Partially imaged left kidney show some heterogeneity to the renal parenchymal echogenicity. A 4.4 bea timeter thin-walled simple cyst is present in the central kidney. Pyelonephritis cannot be excluded. Sonography is limited in this evaluation. Correlation is needed wi th any clinical symptoms, UA abnormalities or other supporting laboratory findings.
[2022-09-23] MEDS: METOCLOPRAMIDE 10 MG/2mL INJ IV PRN (08:01)
[2022-09-23] MEDS: LOSARTAN/HCTZ 50-12.5 PO SCH (08:23)
[2022-09-23] MEDS: ACETAMINOPHEN 500 MG TAB PO PRN (08:23)
[2022-09-23] MEDS: POTASS/SODIUM PHOSPHATE 1 PKT POWD.PACK PO SCH ×2 (08:24→09:51)
[2022-09-23] MEDS: ENOXAPARIN 40 MG/0.4 ML SQ SCH (08:24)
[2022-09-23] MEDS: KCL 20 MEQ/100 mL IVPB 20 MEQ/100 ML BAG IV SCH ×2 (08:25→09:53)
[2022-09-23] MEDS: Ciprofloxacin 200mg IV 200 MG/100 ML IV.SOLN. IV SCH ×2 (08:25→20:21)
[2022-09-23] MEDS ORDERED: METOPROLOL TAR 50 MG TAB PO ONE (11:00)
[2022-09-23] MEDS ORDERED: PROMETHAZINE INJ 25 MG/ML AMP IV ONE (14:00)
[2022-09-23] MEDS ORDERED: METOPROLOL TARTRATE 5 MG/5 ML INJ IV STA ×2 (14:24→14:38)
[2022-09-23] MEDS ORDERED: METOPROLOL TARTRATE 5 MG/5 ML INJ IV PRN ×2 (14:41→14:45)
--- NOTE | 2022-09-23 15:50 | EKG ---
Test Date: 2022-09-22 Test Time: 19:43:57 Bulk Sealer Operator: REZA MEASUREMENT RESULTS: Intervals: Rate: 90 OH: 134 QRSD: 82 QT: 366 QTc: 447 Ewing: P: 54 OH: 134 QRS: 24 T: 4 INTERPRETIVE STATEMENTS: Normal sinus rhythm Biatrial enlargement Possible Inferior infarct, age undetermined Cannot rule out Anterior infarct, age undetermined Abnormal ECG Compared to ECG 09/08/2022 21:47:32 Myocardial infarct finding now present Atrial premature complex(es) no longer present Electronically Signed On 09-23-22 15:49:11 PRIVACY COMPLIANCE MANAGER by Edmund Helms
[2022-09-23] MEDS ORDERED: cloNIDine HCL 0.1 MG TAB PO ONE (16:00)
[2022-09-23] MEDS: METOPROLOL TAR 50 MG TAB PO SCH (17:54)
[2022-09-23] MEDS: ZOLPIDEM TARTRATE 10 MG TABLET PO PRN (21:18)
[2022-09-24] MEDS: METRONIDAZOLE 500mg IVPB 500 MG/100 ML BAG IV SCH ×2 (00:10→09:00)
[2022-09-24 04:39] LABS: Magnesium 1.9 mg/dL (1.6-2.4); Phosphorus 1.8 mg/dL (2.5-4.9); Potassium 3.3 mmol/L (3.5-5.1)
[2022-09-24] MEDS: NA CHLORIDE 0.9% 1,000 ML IV SCH ×4 (04:57→19:54)
[2022-09-24] MEDS: METOPROLOL TAR 50 MG TAB PO SCH ×2 (05:52→17:04)
[2022-09-24] MEDS: ACETAMINOPHEN 500 MG TAB PO PRN (06:49)
[2022-09-24 07:54] LABS: Absolute Lymphocytes (CBC) 2.1 K/uL (0.7-4.9); MCV 79.8 fL (80-100); MPV 9.1 fL (7.6-11.3); RBC Red Blood Cell Count 3.76 M/uL (3.86-4.86)
--- NOTE | 2022-09-24 07:56 | P.PN ---
Date of Service: 09/23/22 Subjective Patient is still nauseated. Overall feeling better. She has an appointment to see gastroenterology for evaluation for colonoscopy. Patient has been seen in the emergency room on 2 different occasions and has been found to have a possible sigmoid lesion. Continue with antibiotic therapy at this time. As long as patient is tolerating her diet she should be able to go home for GI follow-up in a.m.. Physical Examination - Vital Signs Reviewed - Physical Exam General: Alert, In no apparent distress Respiratory: Clear to auscultation bilaterally Cardiovascular: Regular rate/rhythm, Normal S1 S2 Gastrointestinal: Normal bowel sounds, No tenderness Neurological: No focal deficits Assessment and Plan - Problems (Diagnosis) (1) Intractable vomiting with nausea Current Visit: Yes Status: Acute (2) Hypertension Current Visit: Yes Status: Chronic Qualifiers: Hypertension type: primary hypertension Qualified Code(s): I10 - Essential (primary) hypertension (3) Diverticulitis Current Visit: Yes Status: Acute (4) Colonic mass Current Visit: Yes Status: Acute - Plan -Continue IV cipro/flagyl for leukocytosis, diverticulitis vs gastroenteritis. -CT showing 4 centimeter apparent soft tissue structure proximal sigmoid colon may represent neoplasm. Has GI follow up Saturday. -Clear liquid diet, advance as tolerated. -Supportive measures with antiemetics, pain medications, and IV fluids. -Monitor and replete electrolytes per protocol. -Lovenox for VTE prophylaxis. -Full code
[2022-09-24] MEDS: POTASS/SODIUM PHOSPHATE 1 PKT POWD.PACK PO SCH ×3 (08:27→10:39)
[2022-09-24] MEDS: ENOXAPARIN 40 MG/0.4 ML SQ SCH (08:27)
[2022-09-24] MEDS: LOSARTAN/HCTZ 50-12.5 PO SCH (08:29)
[2022-09-24] MEDS: Ciprofloxacin 200mg IV 200 MG/100 ML IV.SOLN. IV SCH (09:00)
[2022-09-24] MEDS ORDERED: POTASSIUM CL SA 10 MEQ TAB PO ONE (09:00)
[2022-09-24] MEDS: PANTOPRAZOLE 40 MG INJ IVP SCH (09:00)
[2022-09-24] MEDS ORDERED: DICYCLOMINE HCL 10 MG CAP PO PRN (09:02)
[2022-09-24] MEDS: metroNIDAZOLE 500 MG TABLET PO SCH ×3 (09:36→19:53)
[2022-09-24] MEDS: PANTOPRAZOLE 40MG TABLET PO SCH ×2 (09:36→17:04)
[2022-09-24] MEDS: ONDANSETRON 4 MG (ODT) TAB PO PRN (10:34)
[2022-09-24] MEDS: CIPROFLOXACIN HCL 500 MG TAB PO SCH ×2 (11:34→19:54)
[2022-09-24] MEDS: METOCLOPRAMIDE 10 MG/2mL INJ IV PRN (14:03)
[2022-09-24] MEDS ORDERED: cloNIDine HCL 0.1 MG TAB PO ONE (15:14)
--- NOTE | 2022-09-24 15:23 | P.PN ---
Subjective Date of Service: 09/24/22 Chief Complaint: Intractable Vomiting No acute events overnight. She reports that her nausea and vomiting is worsening compared to yesterday. She has been passing flatus and has had a bowel movement. Review of Systems 10-point ROS is otherwise unremarkable Gastrointestinal: Nausea, Vomiting, Abdominal Pain Physical Examination - Vital Signs Temperature: 98.3 F Blood Pressure: 169/74 Pulse: 65 Respirations: 18 Pulse Ox (%): 97 - Physical Exam General: Alert, In no apparent distress, Oriented x3 HEENT: Atraumatic, Mucous membr. moist/pink, EOMI, Sclerae nonicteric Neck: JVD not distended Respiratory: Clear to auscultation bilaterally, Normal air movement Cardiovascular: No edema, Regular rate/rhythm, Normal S1 S2, No gallops, No rubs, No murmurs Gastrointestinal: Normal bowel sounds, Soft and benign, Non-distended, No tenderness, No rebound, No guarding Musculoskeletal: No clubbing Integumentary: No rashes Neurological: Normal speech, Normal affect Assessment And Plan - Plan # Intractable Nausea/Vomiting # History of Peptic Ulcer Disease # Cholelithiasis # Small-Moderate Hiatal Hernia - No evidence of bowel obstruction clinically - Consulted Gastroenterology and spoke with Dr. Ramos - recommendations appreciated - Plans for EGD in AM - Continue empiric ciprofloxacin + metronidazole for now - Continue pantoprazole - PRN ondansetron, metoclopromide, dicyclomine - Clear Liquid Diet - advance as tolerated - NPO after midnight # Hypertensive Urgency - Continue home losartan-hydrochlorothiazide - PRN hydralazine # Proximal Sigmoid Colonic Mass (4 cm) - Consulted Gastroenterology and spoke with Dr. Ramos - recommendations appreciated - Recommended continued outpatient follow-up with Dr. Pollard as previously scheduled # Left Renal Cyst (4.1 cm) - Follow-up with PCP Oskar Reeves M.D.
[2022-09-24] MEDS ORDERED: CIPROFLOXACIN HCL 250 MG TAB PO SCH (21:00)
[2022-09-25 03:57] LABS: Absolute Lymphocytes (CBC) 2.3 K/uL (0.7-4.9); Hematocrit 28.8 % (36.0-45.0); MCV 79.4 fL (80-100); RBC Red Blood Cell Count 3.63 M/uL (3.86-4.86)
[2022-09-25 04:03] LABS: Magnesium 1.7 mg/dL (1.6-2.4); Phosphorus 2.1 mg/dL (2.5-4.9); Potassium 3.7 mmol/L (3.5-5.1)
[2022-09-25] MEDS: METOPROLOL TAR 50 MG TAB PO SCH ×2 (05:16→17:38)
[2022-09-25] MEDS: PANTOPRAZOLE 40MG TABLET PO SCH ×2 (07:30→17:37)
[2022-09-25] MEDS ORDERED: MAGNESIUM SULFATE 1 gm IVPB 1 GM/100 ML BAG IV ONE (09:00)
[2022-09-25] MEDS: metroNIDAZOLE 500 MG TABLET PO SCH ×4 (09:00→21:45)
[2022-09-25] MEDS ORDERED: POTASSIUM PHOS IN 0.9 % NACL 15 MMOL/250 ML BAG IV ONE (09:00)
[2022-09-25] MEDS: CIPROFLOXACIN HCL 500 MG TAB PO SCH ×3 (09:00→21:45)
[2022-09-25] MEDS: ENOXAPARIN 40 MG/0.4 ML SQ SCH (09:00)
[2022-09-25] MEDS ORDERED: Ringers Lactate 1,000 ML IV ONE (09:05)
[2022-09-25] MEDS ORDERED: LIDOCAINE 1% MPF 5 ML VIAL ONE (09:59)
[2022-09-25] MEDS ORDERED: propofoL 200 MG/20 ML VIAL IV ONE (09:59)
[2022-09-25] MEDS: LOSARTAN/HCTZ 50-12.5 PO SCH (12:14)
--- NOTE | 2022-09-25 17:47 | P.PN ---
Subjective Date of Service: 09/25/22 Chief Complaint: Intractable Vomiting No acute events overnight. She reports that her nausea and vomiting is not improving, but seems to be post-prandial. Additional consideration is symptomatic cholelithiasis. Review of Systems 10-point ROS is otherwise unremarkable Gastrointestinal: Nausea, Vomiting, Abdominal Pain Physical Examination - Vital Signs Temperature: 97.7 F Blood Pressure: 175/79 Pulse: 72 Respirations: 16 Pulse Ox (%): 100 Assessment And Plan - Plan - Physical Exam General: Alert, In no apparent distress, Oriented x3 HEENT: Atraumatic, Mucous membr. moist/pink, EOMI, Sclerae nonicteric Neck: JVD not distended Respiratory: Clear to auscultation bilaterally, Normal air movement Cardiovascular: No edema, Regular rate/rhythm, Normal S1 S2, No gallops, No rubs, No murmurs Gastrointestinal: Normal bowel sounds, Soft and benign, Non-distended, No tenderness, No rebound, No guarding Musculoskeletal: No clubbing Integumentary: No rashes Neurological: Normal speech, Normal affect # Intractable Nausea/Vomiting # History of Peptic Ulcer Disease # Cholelithiasis # Small-Moderate Hiatal Hernia - No evidence of bowel obstruction clinically - Consulted Gastroenterology and spoke with Dr. Ramos - recommendations appreciated - Spoke with Dr. Ramos post-EGD, who believes that her symptoms may be secondary to cholelithiasis - He has consulted Dr. Lindsey - recommendations appreciated - Continue empiric ciprofloxacin + metronidazole for now - Continue pantoprazole - PRN ondansetron, metoclopromide, dicyclomine - Clear Liquid Diet - advance as tolerated - NPO after midnight # Hypertensive Urgency - Continue home losartan-hydrochlorothiazide - PRN hydralazine # Proximal Sigmoid Colonic Mass (4 cm) - Consulted Gastroenterology and spoke with Dr. Ramos - recommendations appreciated - Recommended continued outpatient follow-up with Dr. Pollard as previously scheduled # Left Renal Cyst (4.1 cm) - Follow-up with PCP Oskar Reeves M.D.
--- NOTE | 2022-09-25 18:25 | OP ---
Surgeon: Ritesh Ramos MD Procedure Performed: Esophagogastroduodenoscopy. Indication For Procedure: Intractable nausea and vomiting. Anesthesia: Monitored anesthesia care. Complexity: Average. Technique: After obtaining informed consent from the patient and explaining risks and complications , which include, but are not limited to bleeding, infection, perforation, and anesthesia complication , patient was placed in a left lateral position and sedation was given. Then the scope was advanced through the mouth and carefully guided up till the second portion of the duodenum. After the complet ion of procedure, scope and equipment were withdrawn and procedure terminated in a safe manner. Findings: Esophagus: No gross lesion seen in the upper and mid esophagus; however, in the distal es ophagus, there was evidence of retained food or pills. This was pushed down into the stomach. After wards on re-examining the distal esophagus, there was no mass or lesion seen, but there appeared to b e a mild stenosis. Initially, it was unclear if this was causing patient any symptoms. It likely is not the cause of the patient's nausea and vomiting. But given this finding, we decided to go ahead and do a balloon dilation. So through the scope balloon dilator, I dilated the distal esophagus from 12 to 13.5 and eventually 15 mm and held the pressure for 30 seconds. Post dilation did not reveal any significant improvement though, which may indicate less of a stricture problem and possibly we wo uld want to rule out achalasia. Biopsies were taken from the distal esophagus. Stomach: Mild patchy areas of erythema seen in the body and antrum with areas of moderate erythema, specifically in the midbody. Biopsies taken from multiple locations. Duodenum: The bulb and second portion appeared normal. Complications: None. Tolerance to anesthesia excellent. Estimated Blood Loss: Minimal. Postoperative Diagnoses: Questionable esophageal stenosis status post dilation versus suspicion of c ardiac achalasia and gastritis status post biopsies. Plan: Continue current management. Oral PPI. We will do an upper GI series with small bowel follow through. Given her symptoms, I did a detailed review of the patient's history and imaging. There is a suspicion of sigmoid lesion, which is around 4 cm versus diverticulitis as per Radiology, which is evidenced on 2 CAT scans. However, she does state she had a colonoscopy done by Dr. Pollard around 2 years ago and that was normal. So it is unlikely that neoplasm would have developed that fast. Sti ll I would not assume the finding in the sigmoid would be causing her persistent nausea and vomiting. I would more be concerned about a gallbladder issue. Therefore we have requested surgical evaluati on. There is no doubt patient will need a colonoscopy, but I would like to wait a couple of weeks be fore doing it unless absolutely necessary, given the suspicion of diverticulitis. This was discussed with the patient and as well as the Primary Care Team. US/MCKENNA Voice ID: [id number] Report ID: [id number]
[2022-09-25] MEDS: NA CHLORIDE 0.9% 1,000 ML IV SCH (21:25)
[2022-09-25] MEDS: ZOLPIDEM TARTRATE 10 MG TABLET PO PRN (21:45)
--- NOTE | 2022-09-25 22:40 | CON ---
Date of Consultation: 09/25/2022 Reason For Service: Cholelithiasis. History Of Present Illness: This is the case of a 67-year-old patient admitted to the hospital for r ecent nausea and bloating. She said every time she eats she starts to have abdominal pain. Seen by the route returner. Imaging shows possible colonic mass and also found cholelithiasis. She has been seen by Dr. Pollard properly and seen right now by Dr. Ramos while she is admitted to the [facility] and the reason I was called is just for cholelithiasis. I discussed the case with the person. The patient says that she does not think it is the gallbladder because the pain happened immediately after she eats. It was explained to her differential diagnosis of abdominal pain in that area that m ay include cholelithiasis. She stated after she eat even Jell-O, she had this bloating and had nause a and vomiting and she stated that for the last year she has been experiencing some dark blood in the stools. The patient has had an EGD with some findings, but not no evidence of peptic ulcer disease. The patient says in the past she has history of ulcers before 2018. At that moment in 2018, her ga stroenterologist was Dr. Pollard and patient claimed that she had a colonoscopy that was completely ne gative for any malignancy. Allergies: IBUPROFEN. Past Medical History: Hypertension. Past Surgical History: Bilateral knee surgeries. Family History: Mother with colon cancer. Social History: She does not smoke. She does not drink alcohol. Review of Systems: Stated nausea and vomiting, after eating, but then also she has states evidence of dark stools almost every week. She denies any weight loss. Physical Examination: General: The patient is awake and alert. Eyes: Pupils are equal and reactive. Anicteric. Neck: Supple. Chest: Clear. Abdomen: Soft and depressible. No Mcwilliams sign. No guarding or rebound. Rectal: Deferred. Extremities: Good capillary refill. Laboratory Data: Blood work shows WBC count of 11.5, coming down from 18 and platelets of 317. Tota l bilirubin of 0.3, alkaline phosphate 93. Abdominal ultrasound shows cholelithiasis and that was in 09/2017. The patient also had a CAT scan read by Dr. Ordonez showing a 4 cm soft tissue structure i n proximal sigmoid colon, mild stranding adjacent to that. Assessment: This is a 67-year-old patient with some issues. She claimed she has melena and has it a lmost every week. She also has a 4 cm structure in the sigmoid colon, cannot rule out diverticulitis versus neoplasm. She also has mild stranding around the area of that sigmoid area. She had diverti culum of the colon. She has uterine fibroid, small hiatal hernia, and cholelithiasis with no gallbla dder wall thickening. She also has a 4 cm renal cyst and family history of colon cancer in the mothe r. Last colonoscopy was in 2018. She is not convinced at this moment of going for a gallbladder vineet danyell. She understands it maybe causing some of the symptoms, she is more interested in bleeding, whi ch I fully understand with a history of colon cancer. Dr. Ramos is working on that and he is very capable of doing this workup for this lady. For the gallbladder, we are interested to do a HIDA sca n in the meantime. JIMMIE/MCKENNA Voice ID: [id number] Report ID: [id number]
[2022-09-26 00:24] VITALS: O2SAT 98
[2022-09-26] MEDS: NA CHLORIDE 0.9% 1,000 ML IV SCH ×3 (00:40→17:25)
[2022-09-26 03:32] LABS: Hematocrit 31.2 % (36.0-45.0); Lymphocytes % 20.2 % (15.3-44.8); MCV 79.9 fL (80-100); MPV 8.7 fL (7.6-11.3); RBC Red Blood Cell Count 3.91 M/uL (3.86-4.86)
[2022-09-26] MEDS ORDERED: MAGNESIUM SULFATE 1 gm IVPB 1 GM/100 ML BAG IV ONE (03:41)
[2022-09-26] MEDS: METOPROLOL TAR 50 MG TAB PO SCH ×2 (05:09→17:16)
--- NOTE | 2022-09-26 06:52 | RAD REPORT ---
EXAM DESCRIPTION: RAD - Upper GI W/Air Cont W/Sm Bowel - 09/25/2022 2:59 pm CLINICAL HISTORY: Achalasia, nausea and vomiting FINDINGS: The esophagus is normal caliber. A stricture is not seen. The esophagus, stomach and duodenum appear unremarkable. No gastroesophageal reflux Contrast enters the colon by approximately 1 hour. Mucosal folds of the small bowel are normal. The small bowel caliber normal . No permanent filling defects, obstructing or constricting lesions seen. Twenty fluoroscopic spot images obtained. Fluoroscopy time 53 seconds IMPRESSION: Unremarkable upper GI Unremarkable small bowel series
[2022-09-26 07:18] LABS: Specific Gravity 1.008 (1.005-1.030); Urine Bilirubin NEGATIVE (Negative); Urine Blood Negative (Negative); Urine Clarity Clear (Clear); Urine Color Light-Yellow (Yellow); Urine Glucose NEGATIVE (Negative); Urine Protein NEGATIVE (Negative); Urine Urobilinogen Normal (Normal); Urine pH 6.5 (5.0-7.0)
[2022-09-26] MEDS ORDERED: POTASSIUM PHOS IN 0.9 % NACL 15 MMOL/250 ML BAG IV ONE (08:00)
[2022-09-26] MEDS: LOSARTAN/HCTZ 50-12.5 PO SCH (08:14)
[2022-09-26] MEDS: PANTOPRAZOLE 40MG TABLET PO SCH ×2 (08:15→17:15)
[2022-09-26] MEDS: metroNIDAZOLE 500 MG TABLET PO SCH ×3 (08:15→20:34)
[2022-09-26] MEDS: CIPROFLOXACIN HCL 500 MG TAB PO SCH ×2 (08:15→20:33)
--- NOTE | 2022-09-26 13:46 | P.PN ---
Subjective Date of Service: 09/26/22 Chief Complaint: Intractable Vomiting No acute events overnight. She reports that her symptoms are unchanged. She states that she has been unable to eat due to the significant nausea/vomiting. She has had no episodes of vomiting overnight. She was seen by Dr. Lindsey - plan is for HIDA scan this afternoon. Review of Systems 10-point ROS is otherwise unremarkable Gastrointestinal: Nausea, Vomiting, Abdominal Pain Physical Examination - Vital Signs Temperature: 98.3 F Blood Pressure: 159/74 Pulse: 76 Respirations: 16 Pulse Ox (%): 97 Assessment And Plan - Plan - Physical Exam General: Alert, In no apparent distress, Oriented x3 HEENT: Atraumatic, Mucous membr. moist/pink, EOMI, Sclerae nonicteric Neck: JVD not distended Respiratory: Clear to auscultation bilaterally, Normal air movement Cardiovascular: No edema, Regular rate/rhythm, Normal S1 S2, No gallops, No rubs, No murmurs Gastrointestinal: Normal bowel sounds, Soft and benign, Non-distended, Mild generalized tenderness, No rebound, No guarding Musculoskeletal: No clubbing Integumentary: No rashes Neurological: Normal speech, Normal affect # Intractable Nausea/Vomiting # History of Peptic Ulcer Disease # Cholelithiasis # Small-Moderate Hiatal Hernia - No evidence of bowel obstruction clinically - Consulted Gastroenterology and spoke with Dr. Ramos - recommendations appreciated - Spoke with Dr. Ramos post-EGD, who believes that her symptoms may be secondary to cholelithiasis - Initial concern for possible achalasia - Upper GI/small bowel series = "unremarkable upper GI. Unremarkable small bowel series." - He has consulted Dr. Lindsey - recommendations appreciated - Plan for HIDA scan this afternoon ~14:00 - Decision regarding laparoscopic cholecystectomy is pending this exam - Continue empiric ciprofloxacin + metronidazole for now - Continue pantoprazole - PRN ondansetron, metoclopromide, dicyclomine # Hypertensive Urgency - Continue home losartan-hydrochlorothiazide - PRN hydralazine # Proximal Sigmoid Colonic Mass (4 cm) - Consulted Gastroenterology and spoke with Dr. Ramos - recommendations appreciated - Recommended continued outpatient follow-up with Dr. Pollard as previously scheduled # Left Renal Cyst (4.1 cm) - Follow-up with PCP Oskar Reeves M.D.
--- NOTE | 2022-09-26 14:03 | EKG ---
Test Date: 2022-09-23 Test Time: 14:15:11 Orthopedic Radiologic Technologist: ANAHI Rowe MEASUREMENT RESULTS: Intervals: Rate: 89 TX: 136 QRSD: 86 QT: 384 QTc: 467 [place]: P: 32 TX: 136 QRS: 30 T: 18 INTERPRETIVE STATEMENTS: Normal sinus rhythm Normal ECG Compared to ECG 09/22/2022 19:43:57 Atrial abnormality no longer present Myocardial infarct finding no longer present Electronically Signed On 09-26-22 14:00:31 BERRY PLANTER by Edmund Helms
--- NOTE | 2022-09-26 15:39 | RAD REPORT ---
EXAM DESCRIPTION: NM - Hepatobiliary System W/ Ph - 09/26/2022 3:28 pm CLINICAL HISTORY: Abdominal pain TECHNIQUE: The patient was administered 6.1 millicuries technetium Choletec intravenous and images o f the abdomen obtained for 19 minutes. Patient was given 1.5 micrograms Kinevac intravenously and suresh ges of the gallbladder obtained for 30 minutes FINDINGS: Liver demonstrates prompt radiotracer uptake. Activity is seen within the gallbladder by 10 minutes. After the administration of cck gallbladder ejection fraction equals 75% (normal values greater than 35% Uptake is seen within small bowel. Patient was asymptomatic prior to Kinevac appeared Patient complained of pain and nausea 1/10 during the administration of CCK. IMPRESSION: No evidence of acute cholecystitis Gallbladder ejection fraction equals 36% which is lower limits normal
[2022-09-26] MEDS: ONDANSETRON 4 MG (ODT) TAB PO PRN (17:15)
[2022-09-26] MEDS: HYDRALAZINE HCL 20 MG/ML VIAL IV PRN (17:19)
--- NOTE | 2022-09-26 18:47 | PN ---
Date of Progress Note: 09/26/2022 Diagnoses: Abdominal pain, nausea, vomiting, bloating, melena. Subjective: This is the case of a 67-year-old patient with multiple medical issues. Dr. Rachel archibald s been working on her, trying to find etiology of her disease, although we suspect may be multifactor ial and one of those factors may be the gallbladder, although cannot explain the inflammation that junior langley has in the sigmoid. She has family history of colon cancer, so it is very important for her to hav e this checkup again, since the last colonoscopy was done in 2018. She feels better, abdomen is kiara gn. Laboratory Data: Blood work is; WBC count of 9.9 with hemoglobin of 9.9. Plan: We are waiting for the HIDA scan to be done, although I explained to her the fact that the HID A scan may be abnormal, does not explain all her conditions, and she fully understands that. That is why she does not want to consent for gallbladder removal, until she has, once again, all the aspect of this somehow clarified. I agree. JIMMIE/MCKENNA Voice ID: [id number] Report ID: [id number]
[2022-09-26] MEDS: ZOLPIDEM TARTRATE 10 MG TABLET PO PRN (20:33)
[2022-09-27] MEDS: NA CHLORIDE 0.9% 1,000 ML IV SCH (02:39)
[2022-09-27] MEDS: METOPROLOL TAR 50 MG TAB PO SCH (05:43)
[2022-09-27 06:32] LABS: Magnesium 1.5 mg/dL (1.6-2.4); Phosphorus 2.3 mg/dL (2.5-4.9); Potassium 3.7 mmol/L (3.5-5.1)
[2022-09-27] MEDS ORDERED: POTASS/SODIUM PHOSPHATE 1 PKT POWD.PACK PO SCH (07:00)
[2022-09-27] MEDS: LOSARTAN/HCTZ 50-12.5 PO SCH (08:28)
[2022-09-27] MEDS: CIPROFLOXACIN HCL 500 MG TAB PO SCH (08:28)
[2022-09-27] MEDS: metroNIDAZOLE 500 MG TABLET PO SCH ×2 (08:28→13:58)
[2022-09-27] MEDS: PANTOPRAZOLE 40MG TABLET PO SCH (08:33)
[2022-09-27] MEDS ORDERED: Magnesium Sulfate 2gm IVPB 2 G/50 ML BAG IV ONE (09:00)
[2022-09-27] MEDS ORDERED: POTASSIUM CL SA 10 MEQ TAB PO ONE (09:00)
[2022-09-27] MEDS ORDERED: POTASSIUM PHOS IN 0.9 % NACL 15 MMOL/250 ML BAG IV ONE (10:00)
[2022-09-27] MEDS: HYDRALAZINE HCL 20 MG/ML VIAL IV PRN (12:03)
[2022-09-27 12:09] VITALS: BP 168/78; TEMP 98.2
--- NOTE | 2022-09-27 13:38 | P.DS ---
Admission Date: 09/22/22 Discharge Date: 09/27/22 Disposition: ROUTINE DISCHARGE Discharge Condition: GOOD Reason for Admission: Intractable Vomiting Consultations: 1. Gastroenterology 2. General Surgery Procedures: - 09/25/2022 - Esophagogastroduodenoscopy Hospital Course: DIAGNOSES: # Intractable Nausea/Vomiting # History of Peptic Ulcer Disease # Cholelithiasis # Small-Moderate Hiatal Hernia # Hypertensive Urgency # Proximal Sigmoid Colonic Mass (4 cm) # Left Renal Cyst (4.1 cm) HOSPITAL COURSE: Ms. Marianna Chand is a pleasant 67-year-old female with a past medical history significant for peptic ulcer disease and hypertension who was admitted to the [facility] on 09/22/2022 for intractable naus ea/vomiting. She was admitted to the Medicine service. She was treated with antiemetics, without alleviation of her symptoms. Her CT abdomen/pelvis revealed, "4 centimeter apparent soft tissue structure proximal sigmoid colon may represent neoplasm. Another consideration is that this is secondary to mild diverticulitis. Cholelithiasis." She has been aware of this colonic lesion prior to admission, and was scheduled to have a colonoscopy on 09/25/2022; however, she did not feel well enough to be discharged on that date, so she missed this appointment. Gastroenterology was consulted while she was hospitalized, and she was evaluated by Dr. Ramos. He felt that the colonic mass was unlikely to be the cause of her nausea and vomiting. While hospitalized, he performed an esophagogastroduodenoscopy, which did not reveal a clear etiology of her symptoms. He recommended that she have further evaluation for possible symptomatic cholelithiasis. General Surgery was consulted and she was evaluated by Dr. Linsdey. HIDA scan was obtained which revealed, "No evidence of acute cholecystitis. Gallbladder ejection fraction equals 36% which is lower limits normal." Dr. Lindsey recommended an elective cholecystectomy as an outpatient if she chooses to proceed. Over the course of her hospitalization, her symptoms improved significantly and she was able to tolerate a diet. She has been cleared for discharge by the Gastroenterology and General Surgery services. Dr. Ramos has recommended that she follow-up with him in clinic next week to have a colonoscopy and biopsies. She has agreed to make this appointment. On 09/27/2022, she was seen on morning rounds and deemed medically stable for discharge. She was discharged with instructions to schedule follow-up appointments with her PCP (ALISE Singletary), with Gastroenterology (Dr. Ramos), and with General Surgery (Dr. Lindsey). She was provided prescriptions for ciprofloxacin, metronidazole, ondansetron, and promethazine. She and her daugh ter (Ms. Grayson) were given the opportunity to ask questions and reported no further questions. Furthermore, all questions were answered to the best of my ability. A copy of this discharge summary will be sent to the above providers to facilitate continuity of care. Today, I personally spent 35 minutes on her case, of which greater than 50% of the time was spent in patient education, counseling, and coordination of care as described above. - Physical Exam General: Alert, In no apparent distress, Oriented x3 HEENT: Atraumatic, Mucous membr. moist/pink, EOMI, Sclerae nonicteric Neck: JVD not distended Respiratory: Clear to auscultation bilaterally, Normal air movement Cardiovascular: No edema, Regular rate/rhythm, Normal S1 S2, No gallops, No rubs, No murmurs Gastrointestinal: Normal bowel sounds, Soft and benign, Non-distended, No tenderness, No rebound, No guarding Musculoskeletal: No clubbing Integumentary: No rashes Neurological: Normal speech, Normal affect Vital Signs/Physical Exam: Temp Pulse Resp BP Pulse Ox 98.2 F 72 16 168/78 H 99 09/27/22 12:00 09/27/22 12:00 09/27/22 12:00 09/27/22 12:00 09/27/22 12:00 Laboratory Data at Discharge: WBC 9.90 K/uL (4.3-10.9) 09/26/22 03:03 Hgb 9.9 g/dL (12.0-15.0) L 09/26/22 03:03 Hct 31.2 % (36.0-45.0) L 09/26/22 03:03 Plt Count 302 K/uL (152-406) 09/26/22 03:03 Sodium 135 mmol/L (136-145) L 09/27/22 06:01 Potassium 3.7 mmol/L (3.5-5.1) 09/27/22 06:01 BUN 6 mg/dL (7-18) L 09/27/22 06:01 Creatinine 0.63 mg/dL (0.55-1.02) 09/27/22 06:01 Glucose 104 mg/dL (74-106) 09/27/22 06:01 Phosphorus 2.3 mg/dL (2.5-4.9) L 09/27/22 06:01 Magnesium 1.5 mg/dL (1.6-2.4) L 09/27/22 06:01 Total Bilirubin 0.3 mg/dL (0.2-1.0) 09/22/22 17:35 AST 18 U/L (15-37) 09/22/22 17:35 ALT 20 U/L (13-56) 09/22/22 17:35 Alkaline Phosphatase 93 U/L (45-117) 09/22/22 17:35 Lipase 60 U/L (73-393) L 09/22/22 17:35 Home Medications: Losartan/Hydrochlorothiazide [Losartan-Hctz 100-25 mg Tab] 1 tab PO DAILY 09/23/22 Ciprofloxacin HCl [Cipro] 500 mg PO BID 5 Days #10 tab 09/27/22 Ondansetron [Zofran (Odt)*] 4 mg PO Q8HP PRN 7 Days #20 tab 09/27/22 Promethazine Tab [Phenergan] 12.5 mg PO Q6HP PRN 7 Days #15 tab 09/27/22 metroNIDAZOLE [Flagyl*] 500 mg PO TID 5 Days #15 tab 09/27/22 New Medications: Promethazine Tab [Phenergan] 12.5 mg PO Q6HP PRN 7 Days #15 tab PRN Reason: Nausea / Vomiting Ondansetron [Zofran (Odt)*] 4 mg PO Q8HP PRN 7 Days #20 tab PRN Reason: Nausea / Vomiting Ciprofloxacin HCl [Cipro] 500 mg PO BID 5 Days #10 tab metroNIDAZOLE [Flagyl*] 500 mg PO TID 5 Days #15 tab Physician Discharge Instructions: 1. Please call and schedule a follow-up appointment with your PCP (ALISE Singletary) in 3-5 days - Please follow-up the cyst on your kidney 2. Please call and schedule a follow-up appointment with Gastroenterology (Dr. Ramos) in 3-5 days - You will need to call and schedule a colonoscopy next week to evaluate the mass in your colon 3. Please call and schedule a follow-up appointment with General Surgery (Dr. Lindsey) in 1-2 weeks - Please discuss the possible gallbladder removal surgery at this appointment Diet: [place] Activity: Ad nathalie Followup: Carlos A Lindsey MD [ACTIVE - CAN ADMIT] - Ritesh Ramos MD [ACTIVE - CAN ADMIT] - Miguel A Singletary FNP [Primary Care Provider] - Time spent managing pt's care (in minutes): 35
== END 2022-09-27 15:26 | disposition home or self-care (01) | DRG 445 ==
LOC: ER 15:44 → ERHOLD 20:45 → 2ND 23:03 → OBSVTOIN 09-24 17:06
PROVIDERS: ADMIT Hospitalist; ATTEND Internal Medicine
PROC: 0DB38ZX Excision of Lower Esophagus, Via Natural or Artificial Opening Endoscopic, Diagnostic (ICD-10-PCS; principal; 2022-09-25 09:15)
PROC: 0DB68ZX Excision of Stomach, Via Natural or Artificial Opening Endoscopic, Diagnostic (ICD-10-PCS; 2022-09-26)
DX: K80.20 Calculus of gallbladder without cholecystitis without obstruction (principal); C18.7 Malignant neoplasm of sigmoid colon; K57.92 Diverticulitis of intestine, part unspecified, without perforation or abscess without bleeding; I10 Essential (primary) hypertension; K44.9 Diaphragmatic hernia without obstruction or gangrene; N28.1 Cyst of kidney, acquired; K63.9 Disease of intestine, unspecified; I16.0 Hypertensive urgency; K29.70 Gastritis, unspecified, without bleeding; D72.829 Elevated white blood cell count, unspecified; Z88.8 Allergy status to other drugs, medicaments and biological substances; Z79.899 Other long term (current) drug therapy; Z20.822 Contact with and (suspected) exposure to COVID-19
CPT/HCPCS: 36415; 74177; 76705; 78227; 80048; 80053; 81003; 82565; 83690; 83735; 84100; 84132; 84484; 85025; 87811; 88305; 88312; 93005; 96361; 96372; 96374; 96375; 99285; A9537; C1726; C9113; G0378; J0360; J0744; J1650; J2001; J2270; J2405; J2550; J2704; J2765; J2805; J3010; J3475; J3480; J7030; J7120; Q0162; Q9967

== ENCOUNTER 2022-10-24 16:29 | Inpatient (IN) | payer OTHER ==
--- OUTSIDE RECORDS SUMMARY | 2022-10-24 16:32 | XMS REPORT | Continuity of Care Document ---
:1955 Author Organization [facility] t Address [address] [place] [address] Care Team Providers Name Role Phone ROHIT ANN Attending Clinician Unavailable MICHAEL MONTALVO Attending Clinician Unavailable TEENA ESCOBAR Attending Clinician Unavailable Payers Payer Name Policy Type Policy Number Effective Date Expiration Date [facility] [id number] 2019 PPO 00:00:00 [facility] [id number] 2016 [facility] 00:00:00 Problems This patient has no known problems. Allergies, Adverse Reactions, Alerts Allergy Allergy Status Severity Reaction(s) Onset Inactive Treating Comm ents Source Name Type Date Date Clinician CODEINE DRUG Active Med N/V [facility] 12-25 ity of 00:00: [address] Medications This patient has no known medications. Procedures This patient has no known procedures. Encounters Start End Encounter Admission Attending Care Care Encounter Source Date/Time Date/Time Type Type Clinicians Facility Department ID 2021-04-14 2021-04-14 Outpatient AILIN ANN [id number] 09:30:00 09:30:00 ROHIT [facility] 2020-08-29 2020-08-29 Outpatient R SELVIN [facility] [id number] [facility] 14:00:00 14:00:00 MICHAEL itartem [facility] 2020-08-18 2020-08-18 Outpatient R LUZ [facility] [id number] [facility] 10:20:00 10:20:00 TEENA itartem [facility] 2020-08-08 2020-08-08 Outpatient R [facility] [id number] [facility] 17:00:00 17:00:00 [facility] 2020-03-22 2020-03-22 Outpatient R [facility] [id number] [facility] 09:10:00 09:10:00 [facility] Results This patient has no known results.
[2022-10-24] MEDS ORDERED: PROMETHAZINE 25 MG TABLET ONE (17:40)
--- NOTE | 2022-10-24 18:28 | RAD REPORT ---
EXAM DESCRIPTION: CT - Stone Protocol - 10/24/2022 5:59 pm CLINICAL HISTORY: Abdominal pain. COMPARISON: September 2022 TECHNIQUE: Computed axial tomography of the abdomen pelvis was obtained without oral or IV contrast. Lack of IV and oral contrast limits evaluation of solid organs, appendix, bowel, and vessels. Lizama l reformatted images were obtained and reviewed. All CT scans are performed using dose optimization technique as appropriate and may include automated exposure control or mA/KV adjustment according to patient size. FINDINGS: A renal calculus is not seen. An ureteral calculus is not noted. A bladder calculus is not present. 4 centimeter left parapelvic renal cyst. No hydronephrosis The liver, spleen, pancreas and adrenals appear grossly normal There is no evidence of diverticulitis. The appendix appears normal Calcified uterine fibroids. Cholelithiasis without gallbladder wall thickening. Small umbilical hernia. Small to moderate hiatal hernia Diverticula stem from the colon. The stranding adjacent to the proximal sigmoid colon has diminished. Possible mass is again demonstrated IMPRESSION: Negative for a genitourinary calculus Cholelithiasis without evidence of cholecystitis The inflammation surrounding the proximal sigmoid colon has diminished since the prior exam. Possible mass within the proximal sigmoid colon is again demonstrated
[2022-10-24] MEDS ORDERED: NA CHLORIDE 0.9% 500 ML ONE (18:58)
[2022-10-24 18:59] LABS: Absolute Lymphocytes (CBC) 2.2 K/uL (0.7-4.9); Hematocrit 40.7 % (36.0-45.0); MCV 77.9 fL (80-100); MPV 8.4 fL (7.6-11.3); RBC Red Blood Cell Count 5.23 M/uL (3.86-4.86)
[2022-10-24 19:42] LABS: Albumin 3.5 g/dL (3.4-5.0); Bilirubin Total 0.8 mg/dL (0.2-1.0); Protein, Total 8.2 g/dL (6.4-8.2)
[2022-10-24 19:44] LABS: Potassium 2.5 mmol/L (3.5-5.1)
--- NOTE | 2022-10-24 19:58 | EDPHYS ---
Physician Documentation [facility] Name: Marianna Chand Age: 67 yrs Sex: Female : 1955 Arrival Date: 10/24/2022 Time: 16:32 Bed 18 Private MD: ED Physician Agustín Olvera HPI: 10/24 18:35 This 67 yrs old Black Female presents to ER via Wheelchair with complaints of snw Nausea/Vomiting. 18:35 The patient presents to the emergency department with nausea, vomiting. Onset: The snw symptoms/episode began/occurred 2 month(s) ago, and became persistent. The symptoms are aggravated by food . Severity of symptoms: At their worst the symptoms were moderate. The patient has experienced similar episodes in the past, multiple times. as noted. Historical: - Allergies: 17:09 Ibuprofen; iw - Home Meds: 17:09 losartan-hydrochlorothiazide 100-25 mg Oral tab 1 tab once daily [Active]; iw - PMHx: 17:09 Hypertensive disorder; iw ROS: 18:32 Constitutional: Negative for fever, chills, and weight loss, Eyes: Negative for injury, snw pain, redness, and discharge, ENT: Negative for injury, pain, and discharge, Neck: Negative for injury, pain, and swelling, Cardiovascular: Negative for chest pain, palpitations, and edema, Respiratory: Negative for shortness of breath, cough, wheezing, and pleuritic chest pain, Back: Negative for injury and pain, : Negative for injury, bleeding, discharge, and swelling, MS/Extremity: Negative for injury and deformity, Skin: Negative for injury, rash, and discoloration, Neuro: Negative for headache, weakness, numbness, tingling, and seizure, Psych: Negative for depression, anxiety, suicide ideation, homicidal ideation, and hallucinations. 18:32 Abdomen/GI: Positive for nausea and vomiting. Exam: 18:31 Constitutional: This is a well developed, well nourished patient who is awake, alert, snw and in no acute distress. Head/Face: Normocephalic, atraumatic. Eyes: Pupils equal round and reactive to light, extra-ocular motions intact. Lids and lashes normal. Conjunctiva and sclera are non-icteric and not injected. Cornea within normal limits. Periorbital areas with no swelling, redness, or edema. ENT: Nares patent. No nasal discharge, no septal abnormalities noted. Tympanic membranes are normal and external auditory canals are clear. Oropharynx with no redness, swelling, or masses, exudates, or evidence of obstruction, uvula midline. Mucous membranes moist. Neck: Trachea midline, no thyromegaly or masses palpated, and no cervical lymphadenopathy. Supple, full range of motion without nuchal rigidity, or vertebral point tenderness. No Meningismus. Chest/axilla: Normal chest wall appearance and motion. Nontender with no deformity. No lesions are appreciated. Cardiovascular: Regular rate and rhythm with a normal S1 and S2. No gallops, murmurs, or rubs. Normal PMI, no JVD. No pulse deficits. Respiratory: Lungs have equal breath sounds bilaterally, clear to auscultation and percussion. No rales, rhonchi or wheezes noted. No increased work of breathing, no retractions or nasal flaring. Back: No spinal tenderness. No costovertebral tenderness. Full range of motion. Skin: Warm, dry with normal turgor. Normal color with no rashes, no lesions, and no evidence of cellulitis. MS/ Extremity: Pulses equal, no cyanosis. Neurovascular intact. Full, normal range of motion. Neuro: Awake and alert, GCS 15, oriented to person, place, time, and situation. Cranial nerves II-XII grossly intact. Motor strength 5/5 in all extremities. Sensory grossly intact. Cerebellar exam normal. Normal gait. Psych: Awake, alert, with orientation to person, place and time. Behavior, mood, and affect are within normal limits. 18:31 Abdomen/GI: Inspection: distension, that is mild, that is moderate, Bowel sounds: active, Palpation: mild abdominal tenderness, in the right upper quadrant and left upper quadrant. Vital Signs: 17:07 BP 122 / 52; Pulse 92; Resp 16; Temp 98.4(O); Pulse Ox 100% on R/A; Weight 69.85 kg; iw Height 5 ft. 1 in. (154.94 cm); Pain 5/10; 21:00 BP 131 / 58; Pulse 81; Resp 22; Pulse Ox 10% ; vc1 22:15 BP 105 / 46; Pulse 88; Resp 17; Pulse Ox 100% ; vc1 23:30 BP 114 / 75; Pulse 87; Resp 22; Pulse Ox 98% on R/A; vc1 17:07 Body Mass Index 29.10 (69.85 kg, 154.94 cm) iw MDM: 17:13 Patient medically screened. snw 18:32 Differential diagnosis: Nonspecific abd pain, gastritis, cholecystitis, diverticulitis. snw Data reviewed: vital signs, nurses notes. I considered the following discharge prescriptions or medication management in the emergency department Medications were administered in the Emergency Department. See MAR. Historians other than the Patient: Spouse/Significant Other: . External Records Reviewed: Inpatient record: Saw Dr. Ramos 09/25/22, Dr. Lindsey 09/26/22. Pt was admitted for intractable N/V. Hida scan showed GB EF 36% low norm. Pt had colonoscopy 10/18/[address] Ramos, noted area of interest was not visualized well. Pt is to have longer prep and repeat colonoscopy 11/05/22. Pt is without s/s change at this time but feels dehydrated and would like some fluids. Pt last episode of vomiting today at 1530, said to be bile in nature.. 10/24 18:03 Order name: CBC with Diff; Complete Time: 19:13 snw 10/24 18:03 Order name: CMP; Complete Time: 19:46 snw 10/24 18:03 Order name: Lipase; Complete Time: 19:46 snw 10/24 19:59 Order name: Urine Osmolality la 10/24 19:59 Order name: Osmolality, Serum; Complete Time: 00:32 la1 10/24 19:59 Order name: Urine Potassium Random 10/24 17:32 Order name: CT Stone Protocol; Complete Time: 18:30 snw 10/24 19:59 Order name: Urine Sodium Random 10/24 19:59 Order name: Add On-Lab w 10/24 20:12 Order name: Magnesium; Complete Time: 20:41 EDMS 10/24 20:19 Order name: SARS RAPID; Complete Time: 23:20 snw 10/24 18:03 Order name: IV Saline Lock; Complete Time: 18:53 snw 10/24 18:04 Order name: Labs collected and sent; Complete Time: 18:53 snw 10/24 19:03 Order name: Labs - recollect needed: recollect green top; Complete Time: 19:17 bd Administered Medications: 17:51 Drug: Phenergan (promethazine) 25 mg Route: PO; 5 18:55 Drug: NS 0.9% 500 ml Route: IV; Rate: bolus; Site: left antecubital; 5 20:00 Follow up: IV Status: Completed infusion; IV Intake: 500ml 1 19:59 CANCELLED (Other Intervention Used): NS 0.9% 1000 ml IV at 125 ml/hr continuous la1 20:15 Drug: fentaNYL (PF) 25 mcg Route: IVP; Site: left antecubital; 5 22:00 Follow up: Response: No adverse reaction; Marked relief of symptoms; Pain is decreased vc1 20:15 Drug: Potassium Chloride 20 mEq Route: IV; Rate: calculated rate; [facility]; 22:15 Follow up: Response: No adverse reaction; IV Status: Completed infusion; IV Intake: vc1 100ml 20:15 Drug: Potassium Chloride 40 mEq Route: PO; [facility] 10/25 00:20 Follow up: Response: No adverse reaction; No change in condition 1 10/24 20:19 CANCELLED (we no have): Erythrocin (ERYTHromycin) 500 mg PO once [facility] 20:40 Drug: Ambien (zolpidem) 5 mg Route: PO; 1 10/25 00:19 Follow up: Response: No adverse reaction 1 10/24 21:33 Drug: NS 0.9% 250 ml Route: IV; Rate: calculated rate; Site: left antecubital; [facility] 10/25 00:19 Follow up: IV Status: Completed infusion; IV Intake: 500ml 1 10/24 22:11 Drug: Ambien (zolpidem) 5 mg Route: PO; vc1 23:00 Follow up: Response: No adverse reaction vc1 22:11 Drug: ProTONIX (pantoprazole) 40 mg Route: IVP; Site: left antecubital; 1 23:00 Follow up: Response: No adverse reaction; Marked relief of symptoms vc1 22:51 Drug: Potassium Chloride 20 mEq Route: IV; Rate: calculated rate; Site: left [facility] antecubital; 10/25 00:19 Follow up: IV Status: Infusion continued upon admission vc1 Disposition: 12:35 Co-signature as Attending Physician, Agustín Olvera MD I agree with the assessment and kdr plan of care. Disposition Summary: 10/24/22 19:58 Hospitalization Ordered Location: Telemetry/[facility] (Inpatient) snw Condition: Stable snw Problem: an acute exacerbation snw Symptoms: have worsened snw Bed/Room Type: Standard snw Provider: Oskar Reeves(10/24/22 19:58) snw Hospitalization Status: Observation(10/24/22 20:00) snw Room Assignment: 209(10/24/22 23:14) eb1 Diagnosis - Other disorders of electrolyte and fluid balance, not elsewhere classified snw - Nausea with vomiting, unspecified snw Forms: - Medication Reconciliation Form snw - SBAR form snw Signatures: Dispatcher [employer] EDRenuka Mccartney Kevin, MD MD kdr Eun Boyer, IS SUPPORT ANALYST-C IS SUPPORT ANALYST-Csnw Darlyn Macias, RN SIDNEY iw Norman Mathur, IS SUPPORT ANALYST-C IS SUPPORT ANALYST-Cla1 Silvestre Caldera RN RN jb4 Jaimie Abraham RN RN eb1 Julieth Conrad RN RN jh5 Charmaine Moreno, RN RN vc1 Corrections: (The following items were deleted from the chart) 10/24 19:58 19:58 Javier Robles snw snw 19:59 19:46 NS 0.9% 1000 ml IV at 125 ml/hr continuous ordered. snw la1 20:00 19:58 Inpatient Admission snw snw 20:19 19:43 Erythrocin (ERYTHromycin) 500 mg PO once ordered. snw jh5 23:14 19:58 snw eb1
--- NOTE | 2022-10-24 19:58 | ER ---
Nurse's Notes [facility] Name: Marianna Chand Age: 67 yrs Sex: Female : 1955 Arrival Date: 10/24/2022 Time: 16:32 Bed 18 Private MD: Diagnosis: Other disorders of electrolyte and fluid balance, not elsewhere classified;Nausea with vomiting, unspecified Presentation: 10/24 17:07 Chief complaint: Patient states: nausea since Saturday , had a colonoscopy , also iw vomiting ,also has stomach pains that are uncomfortable. Coronavirus screen: At this time, the client does not indicate any symptoms associated with coronavirus-19. Ebola Screen: Patient negative for fever greater than or equal to 101.5 degrees Fahrenheit, and additional compatible Ebola Virus Disease symptoms Patient denies exposure to infectious person. Patient denies travel to an Ebola-affected area in the 21 days before illness onset. No symptoms or risks identified at this time. Initial Sepsis Screen: Does the patient meet any 2 criteria? No. Patient's initial sepsis screen is negative. Does the patient have a suspected source of infection? No. Patient's initial sepsis screen is negative. Risk Assessment: Do you want to hurt yourself or someone else? Patient reports no desire to harm self or others. Onset of symptoms was October 24, 2022. 17:07 Method Of Arrival: Wheelchair iw 17:07 Acuity: CARA 3 iw Triage Assessment: 19:00 General: Appears in no apparent distress. uncomfortable, Behavior is calm, cooperative, vc1 appropriate for age. Pain: Complains of pain in abdomen Pain does not radiate. EENT: No deficits noted. Neuro: Level of Consciousness is awake, alert, obeys commands, Oriented to person, place, time, situation. Cardiovascular: No deficits noted. Respiratory: No deficits noted. GI: Reports lower abdominal pain, upper abdominal pain, nausea, vomiting. : No deficits noted. Derm: No deficits noted. Musculoskeletal: No deficits noted. Historical: - Allergies: 17:09 Ibuprofen; iw - Home Meds: 17:09 losartan-hydrochlorothiazide 100-25 mg Oral tab 1 tab once daily [Active]; iw - PMHx: 17:09 Hypertensive disorder; iw Screenin:30 [facility] ED Fall Risk Assessment (Adult) History of falling in the last 3 months, vc1 including since admission No falls in past 3 months (0 pts) Confusion or Disorientation No (0 pts) Intoxicated or Sedated No (0 pts) Impaired Gait No (0 pts) Mobility Assist Device Used No (0 pt) Altered Elimination No (0 pt). Abuse screen: Denies threats or abuse. Nutritional screening: No deficits noted. Tuberculosis screening: No symptoms or risk factors identified. Assessment: 19:00 Reassessment: See triage assessment. vc1 19:00 GI: Abdomen is round non-distended. vc1 20:00 Reassessment: Patient and/or family updated on plan of care and expected duration. Pain vc1 level reassessed. Patient states symptoms have improved. 21:00 Reassessment: Patient and/or family updated on plan of care and expected duration. Pain vc1 level reassessed. Patient states feeling better. GI: Reports no longer feels and pain or nausea. 22:00 Reassessment: Patient and/or family updated on plan of care and expected duration. Pain vc1 level reassessed. Patient states feeling better. Patient states symptoms have improved. 23:00 Reassessment: No changes from previously documented assessment. Patient and/or family vc1 updated on plan of care and expected duration. Pain level reassessed. 10/25 00:00 Reassessment: No changes from previously documented assessment. Patient and/or family vc1 updated on plan of care and expected duration. Pain level reassessed. Vital Signs: 10/24 17:07 BP 122 / 52; Pulse 92; Resp 16; Temp 98.4(O); Pulse Ox 100% on R/A; Weight 69.85 kg; iw Height 5 ft. 1 in. (154.94 cm); Pain 5/10; 21:00 BP 131 / 58; Pulse 81; Resp 22; Pulse Ox 10% ; vc1 22:15 BP 105 / 46; Pulse 88; Resp 17; Pulse Ox 100% ; vc1 23:30 BP 114 / 75; Pulse 87; Resp 22; Pulse Ox 98% on R/A; vc1 17:07 Body Mass Index 29.10 (69.85 kg, 154.94 cm) iw ED Course: 16:32 Patient arrived in ED. mr 16:50 [facility]-C [facility] snw 16:50 Agustín Olvera MD is Attending Physician. snw 17:09 Triage completed. iw 17:09 Arm band placed on. iw 18:01 CT Stone Protocol In Process Unspecified. EDMS 19:11 Julieth Conrad, SIDNEY is Primary Nurse. 5 19:12 Primary Nurse role handed off by Julieth Conrad, RN vc1 19:12 Charmaine Moreno RN is Primary Nurse. vc1 19:43 Notified ED physician of a critical lab result(s). potassium 2.5 chloride 84. 5 19:57 Javier Robles MD is Hospitalizing Provider. snw 19:58 Oskar Reeves MD is Hospitalizing Provider. w 10/25 00:10 No provider procedures requiring assistance completed. Patient admitted, IV remains in vc1 place. Administered Medications: 10/24 17:51 Drug: Phenergan (promethazine) 25 mg Route: PO; 5 18:55 Drug: NS 0.9% 500 ml Route: IV; Rate: bolus; Site: left antecubital; [facility] 20:00 Follow up: IV Status: Completed infusion; IV Intake: 500ml vc1 19:59 CANCELLED (Other Intervention Used): NS 0.9% 1000 ml IV at 125 ml/hr continuous la1 20:15 Drug: fentaNYL (PF) 25 mcg Route: IVP; Site: left antecubital; [facility] 22:00 Follow up: Response: No adverse reaction; Marked relief of symptoms; Pain is decreased vc1 20:15 Drug: Potassium Chloride 20 mEq Route: IV; Rate: calculated rate; Site: left [facility] antecubital; 22:15 Follow up: Response: No adverse reaction; IV Status: Completed infusion; IV Intake: vc1 100ml 20:15 Drug: Potassium Chloride 40 mEq Route: PO; 5 10/25 00:20 Follow up: Response: No adverse reaction; No change in condition 1 10/24 20:19 CANCELLED (we no have): Erythrocin (ERYTHromycin) 500 mg PO once 5 20:40 Drug: Ambien (zolpidem) 5 mg Route: PO; vc1 10/25 00:19 Follow up: Response: No adverse reaction [facility] 10/24 21:33 Drug: NS 0.9% 250 ml Route: IV; Rate: calculated rate; Site: left antecubital; jb4 10/25 00:19 Follow up: IV Status: Completed infusion; IV Intake: 500ml vc1 10/24 22:11 Drug: Ambien (zolpidem) 5 mg Route: PO; vc1 23:00 Follow up: Response: No adverse reaction vc1 22:11 Drug: ProTONIX (pantoprazole) 40 mg Route: IVP; Site: left antecubital; vc1 23:00 Follow up: Response: No adverse reaction; Marked relief of symptoms vc1 22:51 Drug: Potassium Chloride 20 mEq Route: IV; Rate: calculated rate; Site: left vc1 antecubital; 10/25 00:19 Follow up: IV Status: Infusion continued upon admission vc1 Medication: 00:10 VIS not applicable for this client. vc1 Intake: 10/24 20:00 IV: 500ml; Total: 500ml. vc1 22:15 IV: 100ml; Total: 600ml. vc1 10/25 00:19 IV: 500ml; Total: 1100ml. vc1 Outcome: 10/24 19:58 Decision to Hospitalize by Provider. snw 10/25 00:10 Admitted to Med/surg accompanied by tech, via wheelchair, room 209, Report called to [facility] Hermelinda Instructed on the need for admit. 00:17 Condition: improved vc1 00:18 Patient left the ED. vc1 Signatures: Dispatcher [employer] EDMS Eun Boyer FNP-C PRINT DESIGNER-Csnw Yenny Ignacio Irene, RN RN iw Bryson, James, RN RN jb4 Julieth Conrad RN RN jh5 Charmaine Moreno RN RN vc1 Norman Mathur PRINT DESIGNER-Cla1 Corrections: (The following items were deleted from the chart) 10/24 17:20 17:07 BP 122 / 52; Pulse 92bpm; Resp 16bpm; Pulse Ox 100% RA; 69.85 kg; Height 5 ft. 1 iw in.; BMI: 29.1; Pain 5/10; iw
[2022-10-24] MEDS ORDERED: POTASSIUM CL SA 10 MEQ TAB PO ONE (20:09)
[2022-10-24] MEDS ORDERED: FENTANYL CITR 100 MCG/2 ML ONE (20:09)
[2022-10-24] MEDS ORDERED: KCL 20 MEQ/100 mL IVPB 100 ML IV ONE ×2 (20:10→22:49)
[2022-10-24] MEDS ORDERED: ZOLPIDEM TARTRATE 5 MG TABLET ONE ×2 (20:39→21:58)
[2022-10-24] MEDS ORDERED: NA CHLORIDE 0.9% 250 ML ONE (21:30)
[2022-10-24] MEDS ORDERED: PANTOPRAZOLE 40 MG INJ ONE (21:58)
--- NOTE | 2022-10-24 22:00 | P.HP ---
Certification for Inpatient Patient admitted to: Inpatient With expected LOS: >2 Midnights Patient will require the following post-hospital care: None Practitioner: I am a practitioner with admitting privileges, knowledge of patient current condition, hospital course, and medical plan of care. Services: Services provided to patient in accordance with Admission requirements found in Title 42 Section 412.3 of the Code of Federal Regulations <Norman Mathur - Last Filed: 10/24/22 21:57> Patient History Date of Service: 10/24/22 Reason for admission: Hyponatremia, hypokalemia History of Present Illness: 67-year-old female with history of hypertension, recently diagnosed proximal sigmoid colonic mass, GERD presents to the emergency department for intractable nausea and vomiting. She reports that she had a colonoscopy performed on 10/18/2022, unfortunately as procedure they were unable to fully visualize the mass to evaluate, since then patient has had intermittent nausea, vomiting. She also takes losartan/hydrochlorothiazide at home, she was evaluated in the emergency department found to have hyponatremia with a sodium of 122 potassium of 2.5 chloride 84 leukocytosis with a white blood cell count of 15.6, no source of infection identified. In the emergency department patient was given 500 cc NS bolus as well as 40 of IV potassium and 40 of p.o. potassium. Will admit for further valuation and management of hyponatremia, hypokalemia, intractable nausea/vomiting. - Past Medical/Surgical History Diabetic: No -: Hypertension -: Sigmoid mass -: left knee sx Psychosocial/ Personal History: Patient lives at home with her family. - Family History Mother -: Cancer Notes: Colon Cancer - Social History Alcohol use: No CD- Drugs: No Caffeine use: No Place of Residence: Home <Norman Mathur - Last Filed: 10/24/22 21:57> Date of Service: 10/25/22 <Oskar Reeves - Last Filed: 10/25/22 18:24> Allergies NSAIDS (Non-Steroidal Anti-Inflamma Adverse Reaction (Verified 10/25/22 01:57) bleeding Home Medications: RX: Losartan/Hydrochlorothiazide [Losartan-Hctz 100-25 mg Tab] 1 tab PO DAILY 09/23/22 Promethazine Tab [Phenergan] 12.5 mg PO Q6HP PRN 7 Days #15 tab 09/27/22 RX: Ondansetron [Zofran (Odt)*] 4 mg PO Q8HP PRN 7 Days #20 tab 09/27/22 Zolpidem Tartrate [Ambien] 10 mg PO BEDTIME 10/25/22 Review of Systems 10-point ROS is otherwise unremarkable Gastrointestinal: Nausea, Vomiting <Norman Mathur - Last Filed: 10/24/22 21:57> Physical Examination - Physical Exam General: Alert, In no apparent distress, Oriented x3 HEENT: Atraumatic, PERRLA, Mucous membr. moist/pink, EOMI, Sclerae nonicteric Neck: Supple, 2+ carotid pulse no bruit, No LAD, Without JVD or thyroid abnormality Respiratory: Clear to auscultation bilaterally, Normal air movement Cardiovascular: Regular rate/rhythm, Normal S1 S2 Capillary refill: <2 Seconds Gastrointestinal: Normal bowel sounds, No tenderness Musculoskeletal: No tenderness Integumentary: No rashes Neurological: Normal speech, Normal strength at 5/5 x4 extr, Normal tone, Normal affect - Studies Laboratory Data (last 24 hrs) 10/24/22 19:14: Sodium 122 L, Potassium 2.5 L*, BUN 12, Creatinine 1.05 H, Glucose 114 H, Total Bilirubin 0.8, AST 25, ALT 18, Alkaline Phosphatase 91, Lipase 267 10/24/22 18:52: Magnesium 1.8 10/24/22 18:52: WBC 15.60 H, Hgb 13.3, Hct 40.7, Plt Count 325 <Norman Mathur - Last Filed: 10/24/22 21:57> - Studies Laboratory Data (last 24 hrs) 10/24/22 19:14: Sodium 122 L, Potassium 2.5 L*, BUN 12, Creatinine 1.05 H, Glucose 114 H, Total Bilirubin 0.8, AST 25, ALT 18, Alkaline Phosphatase 91, Lipase 267 10/24/22 18:52: Magnesium 1.8 10/24/22 18:52: WBC 15.60 H, Hgb 13.3, Hct 40.7, Plt Count 325 <Oskar Reeves - Last Filed: 10/25/22 18:24> Assessment and Plan - Plan Assessment: Severe hyponatremia, hypokalemia Intractable nausea/vomiting Hypertension Sigmoid colonic mass Plan: Severe hyponatremia, hypokalemia: Likely multifactorial given intractable nausea/vomiting, use of losartan/hydrochlorothiazide, recent colonoscopy prep. Patient given NS bolus as well as potassium replacement ED, will hold off on additional IV fluids until repeat chemistry at midnight in order to avoid overcorrection. Intractable nausea/vomiting: N.p.o. for tonight, twice daily IV Protonix. Hypertension: Hold losartan/HCTZ, likely DC HCTZ at discharge. Sigmoid colonic mass: Patient has repeat colonoscopy scheduled for 11/05/2022 as they were unable to completely visualize colonic mass during previous co lonoscopy. DVT PPX: Lovenox Code status: Full Discharge Plan: Home Plan to discharge in: 48 Hours - Advance Directives Does patient have a Living Will: No Does patient have a Durable POA for Healthcare: No - Code Status/Comfort Care Code Status Assessed: Yes (Full code) Critical Care: No Time Spent Managing Pts Care (In Minutes): 55 <Norman Mathur - Last Filed: 10/24/22 21:57> Physician Review: Patient Assessed, Agree with Above Assessment and Plan <Oskar Reeves - Last Filed: 10/25/22 18:24>
[2022-10-24 23:11] LABS: SARS-CoV-2 Antigen Rapid Res Negative (Negative)
[2022-10-24] MEDS ORDERED: ACETAMINOPHEN 500 MG TAB PO PRN (23:14)
[2022-10-24] MEDS ORDERED: ONDANSETRON 4 MG/2 ML VIAL IV PRN (23:14)
[2022-10-24] MEDS ORDERED: SODIUM CHLORIDE 0.9% 10ML INJ IV PRN (23:14)
[2022-10-25 00:35] LABS: Potassium 3.2 mmol/L (3.5-5.1)
[2022-10-25 01:03] LABS: Specific Gravity 1.007 (1.005-1.030); Urine Bilirubin NEGATIVE (Negative); Urine Blood Negative (Negative); Urine Clarity Clear (Clear); Urine Color Light-Yellow (Yellow); Urine Glucose NEGATIVE (Negative); Urine Protein NEGATIVE (Negative); Urine Urobilinogen Normal (Normal); Urine pH 7.5 (5.0-7.0)
[2022-10-25] MEDS ORDERED: NA CHLORIDE 0.9% 1,000 ML IV SCH ×2 (02:00)
[2022-10-25 02:25] VITALS: BMI 29.9
[2022-10-25 03:39] LABS: Absolute Lymphocytes (CBC) 2.2 K/uL (0.7-4.9); Hematocrit 35.3 % (36.0-45.0); Lymphocytes % 14.3 % (15.3-44.8); MCV 78.3 fL (80-100); MPV 8.7 fL (7.6-11.3); RBC Red Blood Cell Count 4.51 M/uL (3.86-4.86)
[2022-10-25 03:55] LABS: Potassium 3.1 mmol/L (3.5-5.1)
[2022-10-25] MEDS ORDERED: POTASSIUM CL SA 10 MEQ TAB PO ONE (04:30)
[2022-10-25] MEDS ORDERED: MAGNESIUM SULFATE 1 gm IVPB 1 GM/100 ML BAG IV ONE (06:29)
[2022-10-25] MEDS ORDERED: INFLUENZA VACCINE (for 6+ mo) 0.5 ML DOSE IMVAC ONE (08:00)
[2022-10-25 08:50] LABS: Potassium 3.2 mmol/L (3.5-5.1)
[2022-10-25] MEDS: ENOXAPARIN 40 MG/0.4 ML SQ SCH (09:03)
[2022-10-25] MEDS: PANTOPRAZOLE 40 MG INJ IVP SCH ×2 (09:03→20:43)
--- NOTE | 2022-10-25 09:28 | P.CNS ---
Date of Consult: 10/25/22 Reason for Consult: Hyponatremia Requesting Physician: Oskar Reeves Chief Complaint: Hyponatremia, hypokalemia History of Present Illness: 67-year-old female with history of hypertension, recently diagnosed proximal sigmoid colonic mass, GERD presents to the emergency department for intractable nausea and vomiting. She reports that she had a colonoscopy performed on 10/18/2022, unfortunately as procedure they were unable to fully visualize the mass to evaluate, since then patient has had intermittent nausea, vomiting. She also takes losartan/hydrochlorothiazide at home, she was evaluated in the emergency department found to have hyponatremia with a sodium of 122 potassium of 2.5 chloride 84 leukocytosis with a white blood cell count of 15.6, no source of infection identified. In the emergency department patient was given 500 cc NS bolus as well as 40 of IV potassium and 40 of p.o. potassium. Will admit for further valuation and management of hyponatremia, hypokalemia, intractable nausea/vomiting. 18:35 This 67 yrs old Black Female presents to ER via Wheelchair with complaints of snw Nausea/Vomiting. 18:35 The patient presents to the emergency department with nausea, vomiting. Onset: The snw symptoms/episode began/occurred 2 month(s) ago, and became persistent. The symptoms are aggravated by food . Severity of symptoms: At their worst the symptoms were moderate. The patient has experienced similar episodes in the past, multiple times. as noted. Allergies NSAIDS (Non-Steroidal Anti-Inflamma Adverse Reaction (Verified 10/25/22 01:57) bleeding Home medications list reviewed: Yes Home Medications: Losartan/Hydrochlorothiazide [Losartan-Hctz 100-25 mg Tab] 1 tab PO DAILY 09/23/22 Ondansetron [Zofran (Odt)*] 4 mg PO Q8HP PRN 7 Days #20 tab 09/27/22 Promethazine Tab [Phenergan] 12.5 mg PO Q6HP PRN 7 Days #15 tab 09/27/22 Zolpidem Tartrate [Ambien] 10 mg PO BEDTIME 10/25/22 - Past Medical/Surgical History Diabetic: No -: Hypertension -: Sigmoid mass -: Hyponatremia episode (Dr. Corrales) -: left knee sx Psychosocial/ Personal History: Patient lives at home with her family. - Family History Mother Medical History: Cancer Notes: Colon Cancer - Social History Alcohol use: No CD- Drugs: No Caffeine use: No Place of Residence: Home Review of Systems 10-point ROS is otherwise unremarkable Gastrointestinal: Nausea Neurological: Weakness Physical Examination Temp Pulse Resp BP Pulse Ox 97.8 F 80 16 104/48 L 98 10/25/22 08:00 10/25/22 08:00 10/25/22 08:00 10/25/22 08:00 10/25/22 08:00 General: In no apparent distress, Oriented x3, Cooperative HEENT: Atraumatic Neck: Supple Respiratory: Clear to auscultation bilaterally Cardiovascular: No edema, Regular rate/rhythm Gastrointestinal: Soft and benign, Non-distended Musculoskeletal: No clubbing, No contractures Integumentary: No rashes, No cyanosis Neurological: Normal speech Laboratory Data (last 24 hrs) 10/24/22 19:14: Sodium 122 L, Potassium 2.5 L*, BUN 12, Creatinine 1.05 H, Glucose 114 H, Total Bilirubin 0.8, AST 25, ALT 18, Alkaline Phosphatase 91, Lipase 267 10/24/22 18:52: Magnesium 1.8 10/24/22 18:52: WBC 15.60 H, Hgb 13.3, Hct 40.7, Plt Count 325 Imagings Data: EXAM DESCRIPTION: CT - Stone Protocol - 10/24/2022 5:59 pm CLINICAL HISTORY: Abdominal pain. COMPARISON: September 2022 TECHNIQUE: Computed axial tomography of the abdomen pelvis was obtained without oral or IV contrast. Lack of IV and oral contrast limits evaluation of solid organs, appendix, bowel, and vessels. Coronal reformatted images were obtained and reviewed. All CT scans are performed using dose optimization technique as appropriate and may include automated exposure control or mA/KV adjustment according to patient size. FINDINGS: A renal calculus is not seen. An ureteral calculus is not noted. A bladder calculus is not present. 4 centimeter left parapelvic renal cyst. No hydronephrosis The liver, spleen, pancreas and adrenals appear grossly normal There is no evidence of diverticulitis. The appendix appears normal Calcified uterine fibroids. Cholelithiasis without gallbladder wall thickening. Small umbilical hernia. Small to moderate hiatal hernia Diverticula stem from the colon. The stranding adjacent to the proximal sigmoid colon has diminished. Possible mass is again demonstrated IMPRESSION: Negative for a genitourinary calculus Cholelithiasis without evidence of cholecystitis The inflammation surrounding the proximal sigmoid colon has diminished since the prior exam. Possible mass within the proximal sigmoid colon is again demonstrated Conclusions/Impression: Hyponatremia in the setting of HCTZ and N/V/anorexia -Hold HCTZ -Sodium correction within limits at this time; advance liquid diet to maintain appropriate correction rate -BMP q4h Hypokalemia in the setting of HCTZ and N/V/anorexia -Replete as ordered -Continue to monitor HTN -Hold antihypertensives at this time Anemia in chronic illness Microcytosis -Monitor H&H -Check iron status Thank you kindly for the consultation
[2022-10-25] MEDS ORDERED: POTASSIUM 25 MEQ EFFERV TAB PO ONE (11:41)
[2022-10-25 13:04] LABS: Potassium 3.3 mmol/L (3.5-5.1)
--- NOTE | 2022-10-25 18:26 | P.PN ---
Subjective Date of Service: 10/25/22 Chief Complaint: Hyponatremia, hypokalemia No acute events overnight. She states that her nausea/vomiting have improved significantly. She states that she was scheduled to have her colonoscopy on 10/18/2022, but it was unable to be completed due to a poor bowel preparation. She reports having significant vomiting since that procedure. Review of Systems 10-point ROS is otherwise unremarkable Gastrointestinal: Nausea, Vomiting Physical Examination - Vital Signs Temperature: 97.5 F Blood Pressure: 140/66 Pulse: 78 Respirations: 16 Pulse Ox (%): 100 - Physical Exam General: Alert, In no apparent distress, Oriented x3 HEENT: Atraumatic, Mucous membr. moist/pink, EOMI, Sclerae nonicteric Neck: JVD not distended Respiratory: Clear to auscultation bilaterally, Normal air movement Cardiovascular: No edema, Regular rate/rhythm, Normal S1 S2, No gallops, No rubs, No murmurs Gastrointestinal: Soft and benign, Non-distended, No tenderness, No rebound, No guarding, Hyperactive Musculoskeletal: No clubbing Integumentary: No rashes Neurological: Normal speech, Normal affect - Studies Laboratory Data (last 24 hrs) 10/24/22 19:14: Sodium 122 L, Potassium 2.5 L*, BUN 12, Creatinine 1.05 H, Glucose 114 H, Total Bilirubin 0.8, AST 25, ALT 18, Alkaline Phosphatase 91, Lipase 267 10/24/22 18:52: Magnesium 1.8 10/24/22 18:52: WBC 15.60 H, Hgb 13.3, Hct 40.7, Plt Count 325 Assessment And Plan - Plan # Hypovolemic Hyponatremia likely Multifactorial (Intractable Nausea/Vomiting, Bowel Preparation, Thiazide Use) # Hypokalemia due to above # History of Peptic Ulcer Disease # Cholelithiasis # Small-Moderate Hiatal Hernia - Consulted Nephrology and spoke with Dr. Corrlaes - recommendations appreciated - Gentle IV hydration - Hold hydrochlorothiazide - Advance diet as tolerated - Continue pantoprazole - PRN ondansetron, metoclopromide, dicyclomine # Hypertension - Hold home home losartan-hydrochlorothiazide - PRN hydralazine # Question of Proximal Sigmoid Colonic Mass (4 cm) - CT abdomen = "negative for a genitourinary calculus. Cholelithiasis without evidence of cholecystitis. The inflammation surrounding the proximal sigmoid colon has diminished since the prior exam. Possible mass within the proximal sigmoid colon is again demonstrated. - Spoke with Dr. Ramos - he stated that on her prior colonoscopy, he was able to visualize the sigmoid lesion. He believes that it represents chronic inflammation from diverticulitis rather than a colonic mass. However, he was unable to visualize any part of the colon past the sigmoid colon. For that reason, he has scheduled her for repeat colonoscopy on 11/05/2022. - He stated that she can be advanced to a regular diet and start clear liquids on 11/03/2022 as an outpatient # Left Renal Cyst (4.1 cm) - Follow-up with PCP Oskar Reeves M.D.
[2022-10-25] MEDS ORDERED: ZOLPIDEM TARTRATE 5 MG TABLET PO PRN (20:52)
[2022-10-25 21:46] LABS: Potassium 4.3 mmol/L (3.5-5.1)
[2022-10-26 06:51] LABS: Albumin 2.8 g/dL (3.4-5.0); Bilirubin Total 0.5 mg/dL (0.2-1.0); Phosphorus 1.9 mg/dL (2.5-4.9); Potassium 4.3 mmol/L (3.5-5.1); Protein, Total 6.5 g/dL (6.4-8.2); Uric Acid 4.2 mg/dL (2.6-6.0)
[2022-10-26 06:54] LABS: Hematocrit 34.3 % (36.0-45.0); Lymphocytes % 17.2 % (15.3-44.8); MCV 78.7 fL (80-100); MPV 8.7 fL (7.6-11.3); RBC Red Blood Cell Count 4.36 M/uL (3.86-4.86)
[2022-10-26] MEDS: ENOXAPARIN 40 MG/0.4 ML SQ SCH (08:41)
[2022-10-26] MEDS: PANTOPRAZOLE 40 MG INJ IVP SCH (08:41)
--- NOTE | 2022-10-26 08:56 | P.DS ---
Admission Date: 10/24/22 Discharge Date: 10/26/22 Disposition: ROUTINE DISCHARGE Discharge Condition: GOOD Reason for Admission: Hyponatremia, hypokalemia Consultations: 1. Nephrology Hospital Course: DIAGNOSES: # Hypovolemic Hyponatremia likely Multifactorial (Intractable Nausea/Vomiting, Bowel Preparation, Thiazide Use) # Hypokalemia due to above # Suspect Reactive Leukocytosis due to Nausea/Vomiting # History of Peptic Ulcer Disease # Cholelithiasis # Small-Moderate Hiatal Hernia # Hypertension # Question of Proximal Sigmoid Colonic Mass (4 cm) # Left Renal Cyst (4.1 cm) HOSPITAL COURSE: Ms. Marianna Chand is a pleasant 67-year-old female with a past medical history significant for peptic ulcer disease and hypertension who was admitted to the [facility] on 10/24/2022 for intractable nausea/vomiting. She was admitted to the Medicine service. Upon further evaluation, she was found to have hyponatremia and hypokalemia. Her electrolyte derangements were thought to be multifactorial in nature secondary to intractable nausea/vomiting, with recent bowel preparation, and thiazide use. Nephrology was consulted and she was evaluated by Dr. Corrales. Her hydrochlorothiazide was held and she was started on IV fluids, with gradual improvement of her electrolytes and symptoms. Her diet was advanced, and today, she was able to tolerate a regular diet, without any issues. During her evaluation, a CT abdomen was obtained and revealed, "negative for a genitourinary calculus. Cholelithiasis without evidence of cholecystitis. The inflammation surrounding the proximal sigmoid colon has diminished since the prior exam. Possible mass within the proximal sigmoid colon is again demonstrated." In regards to her colon lesion, I spoke with Dr. Ramos. He stated that on her prior colonoscopy, he was able to visualize the sigmoid lesion. He believes that it represents chronic inflammation from diverticulitis rather than a colonic mass. However, he was unable to visualize any part of the colon past the sigmoid colon. For that reason, he has scheduled her for repeat colonoscopy on 11/05/2022. He stated that she can be advanced to a regular diet and start clear liquids on 11/03/2022 as an outpatient. Her hydrochlorothiazide was discontinued at discharge. In regards to her leukocytosis, this was thought to be reactive due to nausea/vomiting. She does not appear to have in any infections clinically. Additionally, her leukocytosis improved without any antibiotics. On 10/26/2022, she was seen on morning rounds and deemed medically stable for discharge. She was discharged with instructions to schedule follow-up appointments with her PCP (ALISE Singletary) and with Gastroenterology (Dr. Ramos). She was provided a prescription for ondansetron. She was given the opportunity to ask questions and reported no further questions. Furthermore, all questions were answered to the best of my ability. A copy of this discharge summary will be sent to the above providers to facilitate continuity of care. Today, I personally spent 20 minutes on her case, of which greater than 50% of the time was spent in patient education, counseling, and coordination of care as described above. - Physical Exam General: Alert, In no apparent distress, Oriented x3 HEENT: Atraumatic, Mucous membr. moist/pink, EOMI, Sclerae nonicteric Neck: JVD not distended Respiratory: Clear to auscultation bilaterally, Normal air movement Cardiovascular: No edema, Regular rate/rhythm, Normal S1 S2, No gallops, No rubs, No murmurs Gastrointestinal: Soft and benign, Non-distended, No tenderness, No rebound, No guarding, Hyperactive Musculoskeletal: No clubbing Integumentary: No rashes Neurological: Normal speech, Normal affect Vital Signs/Physical Exam: Temp Pulse Resp BP Pulse Ox 97.2 F 80 16 137/61 98 10/26/22 12:00 10/26/22 12:00 10/26/22 12:00 10/26/22 12:00 10/26/22 12:00 Laboratory Data at Discharge: WBC 11.40 K/uL (4.3-10.9) H 10/26/22 06:17 Hgb 11.1 g/dL (12.0-15.0) L 10/26/22 06:17 Hct 34.3 % (36.0-45.0) L 10/26/22 06:17 Plt Count 267 K/uL (152-406) 10/26/22 06:17 Sodium 131 mmol/L (136-145) L 10/26/22 06:17 Potassium 4.3 mmol/L (3.5-5.1) 10/26/22 06:17 BUN 9 mg/dL (7-18) 10/26/22 06:17 Creatinine 0.76 mg/dL (0.55-1.02) 10/26/22 06:17 Glucose 101 mg/dL (74-106) 10/26/22 06:17 Uric Acid 4.2 mg/dL (2.6-6.0) 10/26/22 06:17 Phosphorus 1.9 mg/dL (2.5-4.9) L 10/26/22 06:17 Magnesium 2.0 mg/dL (1.6-2.4) 10/26/22 06:17 Total Bilirubin 0.5 mg/dL (0.2-1.0) 10/26/22 06:17 AST 18 U/L (15-37) 10/26/22 06:17 ALT 13 U/L (13-56) 10/26/22 06:17 Alkaline Phosphatase 69 U/L (45-117) 10/26/22 06:17 Lipase 267 U/L (73-393) 10/24/22 19:14 Home Medications: RX: Promethazine Tab [Phenergan*] 12.5 mg PO Q6HP PRN 7 Days #15 tab 09/27/22 RX: Zolpidem Tartrate [Ambien*] 10 mg PO BEDTIME 10/25/22 RX: Ondansetron [Zofran (Odt)*] 4 mg PO Q8HP PRN 7 Days #20 tab 10/26/22 New Medications: RX: Ondansetron [Zofran (Odt)*] 4 mg PO Q8HP PRN 7 Days #20 tab PRN Reason: Nausea / Vomiting Physician Discharge Instructions: 1. Please call and schedule a follow-up appointment with your PCP (ALISE Singletary) in 3-5 days 2. Please attend your colonoscopy appointment with Dr. Ramos in 11/05/2022 - Please start a clear liquid diet on 11/03/2022 Diet: Regular Activity: Ad nathalie Followup: Miguel A Singletary FNP [Primary Care Provider] - Ritesh Ramos MD [ACTIVE - CAN ADMIT] - Time spent managing pt's care (in minutes): 20
[2022-10-26 11:30] VITALS: O2SAT 97
--- NOTE | 2022-10-26 11:59 | P.PN ---
Neohrology note (S) Pt reports feeling better, no current N/V/abd pain, BP acceptable General: In no apparent distress, Oriented x3, Cooperative HEENT: Atraumatic, sclera anicteric Neck: Supple Respiratory: Clear to auscultation bilaterally Cardiovascular: No edema, Regular rate/rhythm Gastrointestinal: Soft and benign, Non-distended Musculoskeletal: No clubbing, No contractures Integumentary: No rashes, No cyanosis Neurological: Normal speech, alert, non focal Laboratory Data (last 24 hrs) Reviewed in the EMR A/P) Hyponatremia in the setting of HCTZ and hypovolemia -Na level improving with isotonic IVF hydration, cont to hold HCTZ Hypokalemia in the setting of GI losses and chronic thiazide diuretic use leading to total body K depletion -Resolved, cont to hold Losartan/HCTZ at this time Essential HTN -BP non elevated at this time, recommend pt monitor BP off ARB/HCTZ and if BP trends up moderately then lower dose ARB can be resumed
[2022-10-26 12:05] VITALS: BP 137/61; TEMP 97.2
== END 2022-10-26 15:18 | disposition home or self-care (01) | DRG 641 ==
LOC: ER 16:29 → ERHOLD 21:51 → 2ND 23:47
PROVIDERS: ADMIT Internal Medicine; ATTEND Internal Medicine
DX: E87.1 Hypo-osmolality and hyponatremia (principal); E86.0 Dehydration; E87.6 Hypokalemia; I10 Essential (primary) hypertension; K21.9 Gastro-esophageal reflux disease without esophagitis; K63.9 Disease of intestine, unspecified; K80.20 Calculus of gallbladder without cholecystitis without obstruction; K44.9 Diaphragmatic hernia without obstruction or gangrene; N28.1 Cyst of kidney, acquired; E86.1 Hypovolemia; D50.9 Iron deficiency anemia, unspecified; D72.829 Elevated white blood cell count, unspecified; Z88.8 Allergy status to other drugs, medicaments and biological substances; Z79.899 Other long term (current) drug therapy; Z20.822 Contact with and (suspected) exposure to COVID-19
CPT/HCPCS: 36415; 74176; 76377; 80048; 80053; 81003; 83690; 83735; 83930; 83935; 84100; 84132; 84300; 84550; 85025; 87811; 96361; 96365; 96366; 96375; 99285; C9113; J1650; J2405; J3010; J3475; J3480; J7030; J7040; J7050; Q0169

== ENCOUNTER 2024-05-25 13:02 | Emergency (ER) | payer OTHER ==
[2024-05-25] MEDS ORDERED: NA CHLORIDE 0.9% 1,000 ML ONE (13:49)
[2024-05-25] MEDS ORDERED: ONDANSETRON 4 MG/2 ML VIAL ONE (13:49)
[2024-05-25 14:13] LABS: Absolute Eosinophils 0.1 K/uL (0-0.5); Absolute Lymphocytes (CBC) 1.4 K/uL (0.7-4.9); Absolute Monocytes 3.3 K/uL (0.1-1.3); Absolute Neutrophil 10.6 K/uL (1.8-8.0); Basophils % 0.2 % (0-1.3); Eosinophils % 0.9 % (0-4.4); Hematocrit 34.4 % (36.0-45.0); Hemoglobin 10.9 g/dL (12.0-15.0); Lymphocytes % 9.2 % (15.3-44.8); MCH 24.6 pg (27.0-35.0); MCHC 31.6 g/dL (32.0-36.0); MPV 8.6 fL (7.6-11.3); Monocytes % 21.3 % (3.3-12.3); Neutrophils % 68.4 % (41.7-73.7); Platelets 331 thou/uL (152-406); RBC Red Blood Cell Count 4.41 M/uL (3.86-4.86); Red Cell Distribution Width 13.6 % (12.1-15.2)
[2024-05-25 14:16] LABS: Albumin 2.9 g/dL (3.4-5.0); Albumin/Globulin Ratio 0.5 (1.1-1.8); Anion Gap 11.6 mEq/L (5.0-15.0); Bilirubin Total 0.5 mg/dL (0.2-1.0); Globulin 5.3 g/dL (2.3-3.5); Potassium 3.6 mEq/L (3.5-5.1); Protein, Total 8.2 g/dL (6.4-8.2)
[2024-05-25 14:48] LABS: Band Neutrophils 17 % (0-1); Differential Total Cells Count 100; Eosinophils 1 % (0-3); Lymphocytes 9 % (15-42); Monocytes 14 % (0-10); Segmented Neutrophils 59 % (40-80)
[2024-05-25 14:50] LABS: Blood Morphology Comment NOT SEEN (NOT SEEN); Platelet Estimate ADEQ
--- NOTE | 2024-05-25 15:32 | RAD REPORT ---
EXAM DESCRIPTION: CT - Abdomen Pelvis W Contrast - 05/25/2024 3:13 pm CLINICAL HISTORY: ABD PAIN COMPARISON: Abdomen Pelvis W Contrast dated 09/22/2022; Abdomen Pelvis W Contrast dated TECHNIQUE: Thin cut axial CT imaging of the abdomen and pelvis was performed following intravenous a dministration of 100 mL Isovue 300. Multiplanar reformats were generated and reviewed. All CT scans are performed using dose optimization technique as appropriate and may include automated exposure control or mA/KV adjustment according to patient size. FINDINGS: No suspicious findings in the lung bases. The liver, spleen, adrenal glands, and pancreas show no suspicious findings. Gallbladder shows small stones layering near the fundus. Symmetric renal function is seen with no hydronephrosis or suspicious renal mass. Parapelvic cyst kirsty suring 4.2 cm is again seen No dilated bowel loops or bowel wall thickening. No free air, free fluid or inflammatory stranding. S mall umbilical hernia containing fat. No suspicious mass or bulky lymphadenopathy. Retroverted uterus with calcified fundal fibroid and another small calcified fibroid near the right cornu. The urinary bladder is without significant finding. No suspicious bony findings. IMPRESSION: No acute intra-abdominal process. Incidental findings as above.
--- NOTE | 2024-05-25 15:43 | ER ---
Nurse's Notes [facility] Name: Marianna Chand Age: 69 yrs Sex: Female : 1955 Arrival Date: 05/25/2024 Time: 13:02 Bed 4 Private MD: Diagnosis: Abdominal pain, unspecified;Nausea with vomiting, unspecified;Diarrhea, unspecified Presentation: 05/25 13:21 Chief complaint: Patient states: Saturday ate a kolache and muffin and later started tm6 feeling funny. Threw up and had yellow diarrhea. Continued to throw up and have diarrhea Saturday and Saturday. Today had black diarrhea. Took pepto bismol. Ebola Screen: Patient negative for fever greater than or equal to 101.5 degrees Fahrenheit, and additional compatible Ebola Virus Disease symptoms Patient denies exposure to infectious person. Patient denies travel to an Ebola-affected area in the 21 days before illness onset. No symptoms or risks identified at this time. Risk Assessment: Do you want to hurt yourself or someone else? Patient reports no desire to harm self or others. Onset of symptoms was May 22, 2024. 13:21 Method Of Arrival: Ambulatory tm6 13:21 Acuity: CARA 3 tm6 14:49 Coronavirus screen: Client denies travel out of the [place] in the last 14 days. Initial go2 Sepsis Screen: Does the patient have a suspected source of infection?. Initial Sepsis Screen: Does the patient meet any 2 criteria? No. Patient's initial sepsis screen is negative. Triage Assessment: 13:21 General: Appears uncomfortable, Behavior is calm, cooperative. Pain: Complains of pain tm6 in right upper quadrant and left upper quadrant Pain currently is 2 out of 10 on a pain scale. Pain began 2-3 days ago. EENT: No signs and/or symptoms were reported regarding the EENT system. Neuro: Level of Consciousness is awake, alert, obeys commands, Oriented to person, place, time, situation. Cardiovascular: Patient's skin is warm and dry. Respiratory: Airway is patent Respiratory effort is even, unlabored, Respiratory pattern is regular, symmetrical. GI: Reports diarrhea, nausea, vomiting. : No signs and/or symptoms were reported regarding the genitourinary system. Derm: No signs and/or symptoms reported regarding the dermatologic system. Musculoskeletal: No signs and/or symptoms reported regarding the musculoskeletal system. Historical: - Allergies: 13:24 Ibuprofen; tm6 - PMHx: 13:24 Hypertensive disorder; tm6 - PSHx: 13:24 hernia repair; tm6 - Immunization history:: Adult Immunizations. - Infectious Disease History:: Denies. - Social history:: Smoking status: Patient denies any tobacco usage or history of. Screenin:48 [facility] ED Fall Risk Assessment (Adult) History of falling in the last 3 months, go2 including since admission No falls in past 3 months (0 pts) Confusion or Disorientation No (0 pts) Intoxicated or Sedated No (0 pts) Impaired Gait No (0 pts) Mobility Assist Device Used No (0 pt) Altered Elimination No (0 pt) Score/Fall Risk Level 0 - 2 = Low Risk. Abuse screen: Denies threats or abuse. Denies injuries from another. Nutritional screening: No deficits noted. Tuberculosis screening: No symptoms or risk factors identified. Assessment: 13:47 General: Appears uncomfortable, well groomed. go2 13:47 Pain: Complains of pain in RUQ/LUQ Pain does not radiate. Pain currently is 2 out of 10 go2 on a pain scale. Pain began 2-3 days ago. Neuro: No deficits noted. Cardiovascular: No deficits noted. Respiratory: No deficits noted. GI: Abdomen is non-distended, Abd is soft Abd is non tender Reports diarrhea, nausea. : No deficits noted. Vital Signs: 13:20 BP 127 / 63; Pulse 91; Temp 98.9(O); Weight 75.3 kg; Height 5 ft. 0 in. ; tm6 14:42 BP 121 / 58; Pulse 70; Resp 16; Temp 98; Pulse Ox 97% ; go2 15:44 BP 112 / 44; Pulse 79; Resp 16; Temp 98.3; Pulse Ox 99% ; go2 13:20 Body Mass Index 32.42 (75.30 kg, 152.4 cm) tm6 ED Course: 13:08 Patient arrived in ED. mr 13:13 Juan Arthur DO is Attending Physician. ms3 13:23 Triage completed. tm6 13:31 Arm band placed on right wrist. tm6 13:47 Ananya Menard, SIDNEY is Primary Nurse. go2 14:20 Inserted saline lock: 20 gauge in right antecubital area, using aseptic technique. go2 14:49 Patient has correct armband on for positive identification. Allergy band placed. Bed in go2 low position. Call light in reach. Side rails up X2. Adult w/ patient. Provided Education on: NA. 14:50 Appears to be sleeping. go2 15:15 CT Abd/Pelvis - IV Contrast Only In Process Unspecified. 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 go2 15:53 IV discontinued, intact, bleeding controlled, No redness/swelling at site. Pressure go2 dressing applied. Administered Medications: 14:12 Drug: Ondansetron IVP 4 mg IVP once; over 2 minutes Route: IVP; Site: right antecubital;dd2 14:27 Follow up: Response: No adverse reaction dd2 14:12 Drug: NS 0.9% IV 1000 ml IV at 1 bolus Per protocol; 1000 mL bolus Route: IV; Rate: 1 dd2 bolus; Site: right antecubital; 14:27 Follow up: Response: No adverse reaction dd2 15:53 Follow up: IV Status: Completed infusion go2 Medication: 14:49 VIS not applicable for this client. go2 Outcome: 15:43 Discharge ordered by MD. ms3 15:54 Discharged to home ambulatory, go2 15:54 Condition: good 15:54 Discharge instructions given to patient, Instructed on discharge instructions, follow up and referral plans. Demonstrated understanding of instructions, follow-up care, medications, Prescriptions given X 1, 15:54 Patient left the ED. go2 Signatures: Dispatcher [employer] EDWA Yenny Ignacio, Titi Reg mr RebolledosJuan, DO DO ms3 Viktoriya Shell RN RN tm6 JESU MOONEY RN RN dd2 Ananya Menard RN RN go2
--- NOTE | 2024-05-25 15:44 | EDPHYS ---
Physician Documentation [facility] Name: Marianna Chand Age: 69 yrs Sex: Female : 1955 Arrival Date: 05/25/2024 Time: 13:02 Bed 4 Private MD: ED Physician Juan Arthur HPI: 05/25 15:46 This 69 yrs old Black Female presents to ER via Ambulatory with complaints of ms3 Black/Tarry Stools, Vomiting, Weakness. 17:39 69-year-old female with past medical history of hypertension presents to the emergency ms3 department for nausea, vomiting, diarrhea that began on Saturday after eating a collage. Patient states she noted her stool to be black this morning after taking Pepto-Bismol. Patient states the pain is located in her mid abdomen. She denies any alleviating or inciting factors. Historical: - Allergies: 13:24 Ibuprofen; tm6 - PMHx: 13:24 Hypertensive disorder; tm6 - PSHx: 13:24 hernia repair; tm6 - Immunization history:: Adult Immunizations. - Infectious Disease History:: Denies. - Social history:: Smoking status: Patient denies any tobacco usage or history of. ROS: 17:39 Constitutional: Negative for fever, and chills. Cardiovascular: Negative for chest ms3 pain, and palpitations. Respiratory: Negative for shortness of breath, cough, wheezing, and pleuritic chest pain, 17:39 Abdomen/GI: Positive for abdominal pain, nausea, vomiting, and diarrhea, 17:39 All other systems are negative, Exam: 17:39 Constitutional: This is a well developed, well nourished patient who is awake, alert, ms3 and in no acute distress. Chest/axilla: Normal chest wall appearance and motion. Nontender with no deformity. Cardiovascular: Regular rate and rhythm with a normal S1 and S2. No gallops, murmurs, or rubs. Normal PMI, no JVD. No pulse deficits. Respiratory: Lungs have equal breath sounds bilaterally, clear to auscultation and percussion. No rales, rhonchi or wheezes noted. No increased work of breathing, no retractions or nasal flaring. 17:39 Abdomen/GI: Inspection: abdomen appears normal, Bowel sounds: normal, Palpation: mild abdominal tenderness, in the right upper quadrant and left upper quadrant, Vital Signs: 13:20 BP 127 / 63; Pulse 91; Temp 98.9(O); Weight 75.3 kg; Height 5 ft. 0 in. ; tm6 14:42 BP 121 / 58; Pulse 70; Resp 16; Temp 98; Pulse Ox 97% ; go2 15:44 BP 112 / 44; Pulse 79; Resp 16; Temp 98.3; Pulse Ox 99% ; go2 13:20 Body Mass Index 32.42 (75.30 kg, 152.4 cm) tm6 MDM: 13:32 Patient medically screened. ms3 17:39 Differential diagnosis: Nonspecific abd pain, gastritis, pancreatitis, diverticulitis, ms3 viral gastroenteritis, gastroenteritis. Data reviewed: vital signs, nurses notes, lab test result(s), radiologic studies, and as a result, I will discharge patient. I considered the following discharge prescriptions or medication management in the emergency department Medications were administered in the Emergency Department. See MAR. Counseling: I had a detailed discussion with the patient and/or guardian regarding the historical points, exam findings, and any diagnostic results supporting the discharge/admit diagnosis, lab results, radiology results, the need for outpatient follow up. Special discussion: Based on the patient's Hx, exam, and Dx evaluation, there is no indication for emergent surgery or inpatient Tx. It is understood by the patient/guardian that if the Sx's persist or worsen they need to return immediately for re-evaluation. ED course: Discussed labs, CT findings with patient and her . Patient to follow-up with primary care physician 2 to 3 days. Patient understands and agrees with plan. All questions were answered. Return precautions discussed include worsening symptoms, or any other concerns. 05/25 13:31 Order name: CBC with Diff; Complete Time: 14:55 ms3 05/25 13:31 Order name: CMP; Complete Time: 14:55 ms3 05/25 14:47 Order name: Manual Differential; Complete Time: 14:55 EDMS 05/25 14:56 Order name: CT Abd/Pelvis - IV Contrast Only; Complete Time: 15:33 ms3 Administered Medications: 14:12 Drug: Ondansetron IVP 4 mg IVP once; over 2 minutes Route: IVP; Site: right antecubital;dd2 14:27 Follow up: Response: No adverse reaction dd2 14:12 Drug: NS 0.9% IV 1000 ml IV at 1 bolus Per protocol; 1000 mL bolus Route: IV; Rate: 1 dd2 bolus; Site: right antecubital; 14:27 Follow up: Response: No adverse reaction dd2 15:53 Follow up: IV Status: Completed infusion go2 Disposition Summary: 05/25/24 15:43 Discharge Ordered Notes: Location: Home ms3 Condition: Stable ms3 Diagnosis - Abdominal pain, unspecified ms3 - Nausea with vomiting, unspecified ms3 - Diarrhea, unspecified ms3 Followup: ms3 - With: Private Physician - When: 2 - 3 days - Reason: Recheck today's complaints Discharge Instructions: - Discharge Summary Sheet ms3 - Abdominal Pain, Adult ms3 - Diarrhea, Adult ms3 - Nausea and Vomiting, Adult ms3 Forms: - Medication Reconciliation Form ms3 - Antibiotic Education ms3 - Prescription Opioid Use ms3 - Patient Portal Instructions ms3 - Leadership Thank You Letter ms3 Prescriptions: - ondansetron 4 mg Oral Tablet,disintegrating - take 1 tablet ORAL route every 8 hours for 5 days as needed for nausea and ms3 vomiting; 15 tablet; Refills: 0, Product Selection Permitted Signatures: Dispatcher [employer] EDMS Juan Arthur, DO ms3 Viktoriya Shell RN RN tm6 JESU MOONEY RN RN dd2 Ananya Menard RN RN go2 Corrections: (The following items were deleted from the chart) 13:31 13:31 CBC+H.LAB.BRZ ordered. EDMS EDMS 13:31 13:31 COMPREHENSIVE METABOLIC PANEL+C.LAB.BRZ ordered. EDMS EDMS 14:47 14:23 CBC Smear Scan ordered. EDMS EDMS 14:57 14:57 Abdomen Pelvis W Con+CT.RAD.BRZ ordered. EDMS EDMS
[2024-05-25 16:29] VITALS: BP 112/44; TEMP 98.3; O2SAT 99
== END 2024-05-25 15:54 | disposition home or self-care (01) ==
LOC: ER 13:02
DX: R10.11 Right upper quadrant pain (principal); R11.2 Nausea with vomiting, unspecified; R19.7 Diarrhea, unspecified
CPT/HCPCS: 85025; 36415; 80053; 74177; Q9967; J2405; J7030